=== PATIENT | female | born 1985 | race Caucasian/White ===

== ENCOUNTER 2020-06-17 16:36 | Emergency (ER) | payer BC, SELFPAY ==
[2020-06-17 16:45] VITALS: BP 120/79; PULSE 74; RESP 17; TEMP 36.6; O2SAT 100; BMI 37.1
--- NOTE | 2020-06-17 16:49 | HMH.EDUTC ---
[facility] [place] Clinical Impression: Viral syndrome, Exposure to COVID-19 virus Pharyngitis Qualifiers: Pharyngitis/tonsillitis etiology: unspecified etiology Qualified Code(s): J02.9 - Acute pharyngitis, unspecified Disposition: Home, Self-Care Condition on Discharge: Good Instructions: Preventing the Spread of Coronavirus Discharge Instructions Additional Instructions: Drink plenty of fluids. Take tylenol for pain or fever. Return if you begin to have difficulty breathing. Follow up with your regular doctor. GO TO THE ER FOR ANY WORSENING SYMPTOMS Prescriptions: Azithromycin [Z-Boris 250mg Tab*] 250 mg PO UD DOSE PK #6 tab Transmission Status: Received by [facility] Referrals: Edilson Winters MD [Primary Care Provider] - Forms: Work/School Release Time of Disposition: 17:02 Medical Decision Making - Medical Records Medical records reviewed: No: I reviewed the patient's medical records. - Ga Inquiry Pt receiving controlled substance: No Vital Signs: 06/17/20 16:45 06/17/20 17:10 Temperature 97.9 F 97.9 F Temperature Source Oral Oral Pulse Rate 74 Pulse Rate [Radial] 74 Respiratory Rate 17 17 Blood Pressure 120/79 Blood Pressure [Right Arm] 120/79 Blood Pressure Mean [Right Arm] 92 Blood Pressure Source Automatic Cuff Blood Pressure Source [Right Arm] Automatic Cuff Blood Pressure Position Sitting Blood Pressure Position [Right Arm] Sitting 02 Sat by Pulse Oximetry 100 Oxygen Delivery Method Room Air Room Air - Lab Data Lab results reviewed: Yes: I reviewed the patient's lab results. Orders (Tests/Meds): ORDERS Category Date Time Status Covid-19 Nasal PCR Sendout Contreras Routine Lab 06/17/20 16:56 Received [facility] [place] HPI - General Stated complaint: sore throat cough headache Time Seen by Provider: 06/17/20 16:49 - History of Present Illness Provider Complaint: She c/o 2 days of sore throat and sinus congestion. She has ran a low grade fever off and on since yesterday. She denies significant cough or shortness of breath. - Related Data Home Medications Medication Instructions Recorded Confirmed cholestyramine (with sugar) 4 gram 4 g PO DAILY PRN each 07/30/19 07/30/19 powder for susp in a packet estradiol 0.1 mg/24 hr semiweekly 1 patch TRANSDERMA ONCE each 07/30/19 07/30/19 transdermal patch sulfacetamide sodium 9.8 %-sulfur TOPICAL 07/30/19 07/30/19 4.8 % topical cleanser venlafaxine 37.5 mg mg PO 07/30/19 07/30/19 capsule,extended release 24 hr Previous Rx's Medication Instructions Recorded triamcinolone acetonide 0.1 % 1 applic TOPICAL BID #15 g 03/19/19 topical cream Azithromycin [Z-Boris 250mg Tab*] 250 mg PO UD DOSE PK #6 tab 06/17/20 Allergies Allergy/AdvReac Type Severity Reaction Status Date / Time oxycodone [OXYCODONE] Allergy Unknown I-HIVES Verified 07/30/19 16:12 [facility] History - Hepatitis A Screen Attestation statement:: This patient has been screened for Hepatitis A risk factors. I have reviewed the patient's past medical history: Yes Medical History: Reports:: Hypertension Other Surgeries: Yes: No Previous Surgery, Hysterectomy-Total Amputation: No Fractures: No - Social History Smoking Status: Never smoker Alcohol Intake: never Alcohol Intake Frequency:: 0-2 drinks per day Substance Use Type: denies use Occupational Status: employed Housing: house Household Members: family Family Hx:: Non-contributory ROS Obtained: Yes All systems reviewed & no additional complaints - Constitutional Constitutional: Reports system reviewed and no additional complaints, except as docu - Eyes Eyes: Reports system reviewed and no additional complaints, except as docu - ENT Ears, Nose, Mouth, and Throat: Reports system reviewed and no additional complaints, except as docu - Cardiovascular Cardiovascular: Reports system reviewed and no additional complaints, except as docu - Respir
[2020-06-17 17:10] VITALS: BP 120/79; PULSE 74; RESP 17; TEMP 36.6; O2SAT 100
[2020-06-18 21:35] LABS: UTC Strep Screen (Rapid) Negative (Negative)
[2020-06-19 12:09] LABS: Covid-19 Nasal PCR Sendout Lex Not Detected
== END 2020-06-17 17:11 | disposition home or self-care (01) ==
PROVIDERS: Emergency Provider Nurse Practitioner Family; PCP Family Medicine
DX: Z20.828 Contact with and (suspected) exposure to other viral communicable diseases (principal); B34.9 Viral infection, unspecified; Z88.5 Allergy status to narcotic agent
CPT/HCPCS: 87880; 99202; U0004

== ENCOUNTER → 2021-03-10 17:24 | Outpatient (CLI) | payer BC, SELFPAY | PROVIDERS: PCP Nurse Practitioner; Visit Provider Nurse Practitioner | DX: Z20.822 Contact with and (suspected) exposure to COVID-19 (principal) | CPT/HCPCS: U0003 ==

== ENCOUNTER → 2021-04-29 15:24 | Outpatient (CLI) | payer BC, SELFPAY | PROVIDERS: Visit Provider Nurse Practitioner | DX: Z20.822 Contact with and (suspected) exposure to COVID-19 (principal) | CPT/HCPCS: C9803; U0003; U0005 ==

== ENCOUNTER 2021-08-08 08:51 | Emergency (ER) | payer BC, SELFPAY ==
[2021-08-08] VITALS (7 sets, daily range): BP systolic 117–139; BP diastolic 62–78; PULSE 82–106; RESP 16; TEMP 36.8–37.1; O2SAT 90–100; BMI 37.1
--- NOTE | 2021-08-08 09:05 | HMH.EDGENADL ---
ED Disposition Clinical Impression: COVID Disposition: Home, Self-Care Condition on Discharge: Good Additional Instructions: Please continue to monitor your condition at home. If any concerning symptoms we discussed arise, please return to the emergency department. Otherwise, please follow-up with your primary care physician. Referrals: Tom Fitzgerald MD [Primary Care Provider] - - Critical Care Critical Care Time: No Attestation: On , the high probability of a clinically significant, sudden or life threatening deterioration of the following system(s) required my full and direct attention, intervention and personal management. The time I documented below is in addition to time spent performing reported procedures but includes the following listed in this critical care notation. Medical Decision Making - Medical Records Medical records reviewed: Yes: I reviewed the patient's medical records. - Ga Inquiry Pt receiving controlled substance: No Vital Signs: 08/08/21 08:53 08/08/21 09:31 08/08/21 10:01 Temperature 98.2 F Temperature Source Oral Pulse Rate 85 88 Pulse Rate [Right Radial] 93 H Respiratory Rate 16 16 Blood Pressure 134/65 125/72 Blood Pressure [Right Arm] 139/78 Blood Pressure Mean 91 Blood Pressure Mean [Right Arm] 98 Blood Pressure Source [Right Arm] Automatic Cuff Blood Pressure Position [Right Arm] Sitting 02 Sat by Pulse Oximetry 100 99 90 L Oxygen Delivery Method Room Air Room Air 08/08/21 10:31 08/08/21 11:00 Temperature Temperature Source Pulse Rate 89 82 Pulse Rate [Right Radial] Respiratory Rate 16 Blood Pressure 117/62 119/71 Blood Pressure [Right Arm] Blood Pressure Mean 86 Blood Pressure Mean [Right Arm] Blood Pressure Source [Right Arm] Blood Pressure Position [Right Arm] 02 Sat by Pulse Oximetry 98 98 Oxygen Delivery Method - Lab Data Lab results reviewed: Yes: I reviewed the patient's lab results. Lab Results 08/08/21 09:55: WBC 7.6, RBC 4.80, Hgb 14.3, Hct 52.8 H, MCV 110.1 H, MCH 29.9, MCHC 27.2 L, RDW 16.4, Plt Count 266, MPV 23.4 H, Neut % (Auto) 65.5, Lymph % (Auto) 26.1, [place] % (Auto) 3.6, Eos % (Auto) 4.7, Baso % (Auto) 17.8 H, Neut # (Auto) 5.0, Lymph # (Auto) 2.0, [place] # (Auto) 0.3, Eos # (Auto) 0.4, Baso # (Auto) 1.4 H 08/08/21 09:55: D-Dimer 0.85 H 08/08/21 09:55: Sodium 142, Potassium 4.3, Chloride 106, Carbon Dioxide 29, Anion Gap 11.3, BUN 13, Creatinine 0.70, Estimated Creat Clear 179, Estimated GFR 94, Est GFR ( Amer) 113, Glucose 91, Calcium 9.3, Total Bilirubin 0.2, AST 34, ALT 39, Alkaline Phosphatase 86, Troponin I < 0.01, Total Protein 7.3, Albumin 4.4, Globulin 2.9, Albumin/Globulin Ratio 1.5 Result diagrams: 08/08/21 09:55 08/08/21 09:55 Orders (Tests/Meds): ED MEDICATIONS Discontinued Medications Generic Name Dose Route Start Last Admin Trade Name Freq PRN Reason Stop Dose Admin Albuterol Sulfate 2.5 mg 08/08/21 09:24 Albuterol 0.083% 2.5 Mg/3 Ml Neb IH 08/08/21 09:25 ONCE ONE ORDERS Category Date Time Status Troponin I Q3H Lab 08/08/21 12:30 Ordered Troponin I Q3H Lab 08/08/21 15:30 Ordered EKG Request [ECG Request by /Mikael] Stat Y 08/08/21 09:24 Ordered Medical Decision Narrative: Patient is a 36-year-old female presenting with a chief complaint of dyspnea in the setting of a COVID-19 infection. Differential diagnosis includes, but is not limited to, COVID-19 pneumonia, superimposed bacterial infection, DVT, myocarditis/pericarditis, pleural effusion, other. On initial exam, patient is hemodynamically stable and nontoxic-appearing. She is mildly tachycardic on my exam. Her lungs are clear. She does have several risk factors for pulmonary embolus including decreased mobility since her right-sided hip surgery in June, family history of blood clots and current hormone use. Given this, patient was evaluate CBC, CMP, troponin, D-dimer, EKG and dawit
--- NOTE | 2021-08-08 09:23 | XR_ITS ---
PROCEDURE INFORMATION: Exam: XR Chest Exam date and time: 08/08/2021 9:23 AM Age: 36 years old Clinical indication: Shortness of breath; Additional info: Dyspnea, covid + TECHNIQUE: Imaging protocol: XR of the chest. Views: 1 view. COMPARISON: CR CXR CHEST(2 VIEWS-NOT PORTABLE) 08/10/2016 1:48 PM FINDINGS: Lungs: No focal airspace disease. Pleural spaces: Unremarkable. No pleural effusion. No pneumothorax. Heart/Mediastinum: Cardiomediastinal silhouette is within normal limits. Bones/joints: Unremarkable. IMPRESSION: No acute cardiopulmonary abnormality.
--- NOTE | 2021-08-08 09:30 | ECG_ITS ---
APPROVED REPORT Exam: Resting ECG HR:84 bpm ECG Measurements Heart Rate 84 AXES NH 175 P 38 QRSd 86 QRS 23 QT 375 T 19 QTc 417 Conclusion SINUS RHYTHM NONSPECIFIC T-WAVE ABNORMALITY BORDERLINE ECG UNCONFIRMED REPORT Electronically signed by : Jermaine Bledsoe MD 08/09/2021 17:28:37
[2021-08-08 10:36] LABS: Basophils # 1.4 K/mm3 (0-0.2); Basophils % 17.8 % (0.1-2.0); Eosinophils # 0.4 K/mm3 (0.0-0.4); Eosinophils % 4.7 % (0.1-12.0); Hematocrit 52.8 % (37.0-47.0); Hemoglobin 14.3 g/dL (12.2-16.2); Lymphocytes % 26.1 % (10-50); Mean Corpuscular HGB Conc 27.2 g/dL (31.8-35.4); Mean Corpuscular Hemoglobin 29.9 pg (27.0-31.2); Mean Corpuscular Volume 110.1 fl (81-99); Mean Platelet Volume 23.4 fl (7.4-10.4); Monocytes # 0.3 K/mm3 (0.1-1.0); Monocytes % 3.6 % (1.7-9.3); Neutrophils % 65.5 % (37.0-80.0); Platelet Count 266 K/mm3 (142-424); Red Cell Distribution Width 16.4 % (11.5-17.5); White Blood Count 7.6 K/mm3 (4.8-10.8)
[2021-08-08 10:45] LABS: Alanine Aminotransferase 39 U/L (12-78); Albumin Level 4.4 g/dl (3.5-5.0); Albumin/Globulin Ratio 1.5 (1.1-1.8); Alkaline Phosphatase 86 U/L (38-126); Anion Gap 11.3 mEq/L (5-15); Aspartate Amino Transferase 34 U/L (14-36); Bilirubin,Total 0.2 mg/dl (0.2-1.3); Blood Urea Nitrogen 13 mg/dl (7-17); Calcium 9.3 mg/dl (8.4-10.2); Carbon Dioxide 29 mmol/L (22.0-30.0); Chloride 106 mmol/L (98-107); Creatinine Clearance Estimated 179 mL/min (50-200); Estimated Glomerular Filt Rate 94 ml/min (>60); GFR (African American) 113 ML/MIN (>60); Globulin 2.9 g/dL (1.3-3.2); Glucose 91 mg/dl (74-100); Potassium 4.3 mmoL/L (3.5-5.1); Sodium 142 mmol/L (136-145); Total Protein,Serum 7.3 g/dl (6.3-8.2)
[2021-08-08 10:50] LABS: D-Dimer 0.85 ug/mL (0.0-0.5)
[2021-08-08 11:12] LABS: Troponin I < 0.01 ng/ml (0.00-0.034)
== END 2021-08-08 11:35 | disposition home or self-care (01) ==
PROVIDERS: Emergency Provider Emergency Medicine; PCP Family Medicine
DX: U07.1 COVID-19 (principal); I10 Essential (primary) hypertension
CPT/HCPCS: 71045; 80053; 84484; 85025; 85378; 93005; 99282

== ENCOUNTER → 2022-04-14 08:31 | Outpatient (CLI) | payer BC, SELFPAY ==
[2022-04-14 19:09] LABS: Basophils # 0.1 K/mm3 (0-0.2); Basophils % 1.7 % (0.1-2.0); Eosinophils # 0.2 K/mm3 (0.0-0.4); Eosinophils % 2.8 % (0.1-12.0); Hematocrit 44.4 % (37.0-47.0); Hemoglobin 13.9 g/dL (12.2-16.2); Lymphocytes # 1.7 K/mm3 (0.7-4.5); Lymphocytes % 28.5 % (10-50); Mean Corpuscular HGB Conc 31.3 g/dL (31.8-35.4); Mean Corpuscular Hemoglobin 29.5 pg (27.0-31.2); Mean Corpuscular Volume 94.2 fl (81-99); Mean Platelet Volume 9.6 fl (7.4-10.4); Monocytes # 0.2 K/mm3 (0.1-1.0); Neutrophils # 3.7 K/mm3 (1.8-7.8); Neutrophils % 62.9 % (37.0-80.0); Platelet Count 400 K/mm3 (142-424); Red Blood Count 4.71 M/mm3 (4.20-5.40); White Blood Count 5.8 K/mm3 (4.8-10.8)
[2022-04-14 19:25] LABS: Alanine Aminotransferase 28 U/L (12-78); Albumin/Globulin Ratio 1.5 (1.1-1.8); Alkaline Phosphatase 117 U/L (38-126); Anion Gap 14.9 mEq/L (5-15); Aspartate Amino Transferase 34 U/L (14-36); Blood Urea Nitrogen 11 mg/dl (7-17); Calcium 8.7 mg/dl (8.4-10.2); Carbon Dioxide 29 mmol/L (22.0-30.0); Chloride 102 mmol/L (98-107); Chol/HDL Ratio 2.4 (1-3.5); Cholesterol 198 mg/dl (140-200); Estimated Glomerular Filt Rate 80 ml/min (>60); GFR (African American) 97 ML/MIN (>60); Globulin 2.7 g/dL (1.3-3.2); Glucose 62 mg/dl (74-100); HDL Cholesterol 82 mg/dl (40-60); Potassium 4.9 mmoL/L (3.5-5.1); Sodium 141 mmol/L (136-145); Total Protein,Serum 6.7 g/dl (6.3-8.2); Triglycerides 103 mg/dl (30-150); VLDL Cholesterol 21 mg/dL (0-40)
[2022-04-14 19:27] LABS: Bilirubin,Total < 0.1 mg/dl (0.2-1.3)
[2022-04-14 19:36] LABS: Direct LDL Cholesterol 85.57 mg/dL (100-129)
[2022-04-14 19:37] LABS: 25-OH Vitamin D, Total 16.4 ng/mL (30-100)
[2022-04-14 19:56] LABS: Thyroid Stimulating Hormone 1.33 uIU/mL (0.465-4.68)
[2022-04-14 20:15] LABS: Vitamin B12 346 pg/mL (239-931)
[2022-04-20 19:32] LABS: Estrogen 229 pg/mL (.)
== END ==
PROVIDERS: PCP Nurse Practitioner; Visit Provider Nurse Practitioner
DX: R53.83 Other fatigue (principal); Z78.0 Asymptomatic menopausal state; E66.9 Obesity, unspecified; Z68.36 Body mass index [BMI] 36.0-36.9, adult
CPT/HCPCS: 80053; 80061; 82306; 82607; 82672; 84443; 85025

== ENCOUNTER → 2022-09-23 22:26 | Outpatient (CLI) | payer BC, SELFPAY ==
[2022-09-23 18:15] LABS: Basophils # 0.1 K/mm3 (0-0.2); Basophils % 1.4 % (0.1-2.0); Eosinophils # 0.2 K/mm3 (0.0-0.4); Eosinophils % 2.8 % (0.1-12.0); Hematocrit 45.2 % (37.0-47.0); Hemoglobin 15.4 g/dL (12.2-16.2); Lymphocytes # 2.1 K/mm3 (0.7-4.5); Lymphocytes % 27.4 % (10-50); Mean Corpuscular HGB Conc 34.2 g/dL (31.8-35.4); Mean Corpuscular Hemoglobin 30.4 pg (27.0-31.2); Mean Corpuscular Volume 88.9 fl (81-99); Mean Platelet Volume 8.7 fl (7.4-10.4); Monocytes # 0.3 K/mm3 (0.1-1.0); Monocytes % 3.5 % (1.7-9.3); Neutrophils # 4.9 K/mm3 (1.8-7.8); Neutrophils % 64.8 % (37.0-80.0); Platelet Count 419 K/mm3 (142-424); Red Blood Count 5.08 M/mm3 (4.20-5.40); Red Cell Distribution Width 13.2 % (11.5-17.5); White Blood Count 7.6 K/mm3 (4.8-10.8)
== END ==
PROVIDERS: PCP Nurse Practitioner; Visit Provider Nurse Practitioner
DX: R10.32 Left lower quadrant pain (principal); R10.9 Unspecified abdominal pain; R19.7 Diarrhea, unspecified
CPT/HCPCS: 85025; 87086

== ENCOUNTER → 2022-10-03 09:30 | Outpatient (CLI) | payer BC, SELFPAY ==
[2022-10-03 18:35] LABS: Basophils # 0.1 K/mm3 (0-0.2); Basophils % 1.2 % (0.1-2.0); Chloride 104 mmol/L (98-107); Eosinophils # 0.2 K/mm3 (0.0-0.4); Eosinophils % 2.5 % (0.1-12.0); Hematocrit 45.9 % (37.0-47.0); Hemoglobin 14.8 g/dL (12.2-16.2); Lymphocytes # 2.2 K/mm3 (0.7-4.5); Lymphocytes % 27.2 % (10-50); Mean Corpuscular HGB Conc 32.4 g/dL (31.8-35.4); Mean Corpuscular Hemoglobin 29.5 pg (27.0-31.2); Mean Platelet Volume 9.2 fl (7.4-10.4); Monocytes # 0.3 K/mm3 (0.1-1.0); Neutrophils # 5.1 K/mm3 (1.8-7.8); Platelet Count 356 K/mm3 (142-424); Red Blood Count 5.04 M/mm3 (4.20-5.40); Sodium 140 mmol/L (136-145); White Blood Count 7.9 K/mm3 (4.8-10.8)
[2022-10-03 18:38] LABS: Blood Urea Nitrogen 14 mg/dl (7-17); Carbon Dioxide 26 mmol/L (22.0-30.0); Estimated Glomerular Filt Rate 62 ml/min (>60); GFR (African American) 75 ML/MIN (>60); Glucose 90 mg/dl (74-100)
== END ==
PROVIDERS: PCP Nurse Practitioner; Visit Provider Nurse Practitioner
DX: N17.9 Acute kidney failure, unspecified (principal)
CPT/HCPCS: 80048; 85025

== ENCOUNTER → 2022-10-10 23:18 | Outpatient (CLI) | payer BC, SELFPAY ==
[2022-10-10 17:35] LABS: Microscopic, Urine URINE MICROSCOPIC (MICROSCOPIC)
[2022-10-10 18:29] LABS: Anion Gap 10.2 mEq/L (5-15); Blood Urea Nitrogen 13 mg/dl (7-17); Calcium 8.6 mg/dl (8.4-10.2); Carbon Dioxide 27 mmol/L (22.0-30.0); Chloride 105 mmol/L (98-107); Estimated Glomerular Filt Rate 70 ml/min (>60); GFR (African American) 84 ML/MIN (>60); Glucose 81 mg/dl (74-100); Potassium 4.2 mmoL/L (3.5-5.1); Sodium 138 mmol/L (136-145)
[2022-10-10 18:38] LABS: Appearance,Urine CLEAR (Clear); Bilirubin,Urine Negative (Negative); Blood, Urine Negative (Negative); Color,Urine YELLOW (Yellow); Glucose,Urine (UA) Negative (Negative); Ketones,Urine Negative (Negative); Leukocyte Esterase,Urine Negative (Negative); Nitrate,Urine Negative (Negative); Protein,Urine Negative (Negative); Urobilinogen,Urine 0.2 EU/dl (0.2)
[2022-10-10 18:43] LABS: Free T4 (Free Thyroxine) 0.77 ng/dl (0.78-2.19)
[2022-10-10 18:58] LABS: Thyroid Stimulating Hormone 2.45 uIU/mL (0.465-4.68)
[2022-10-10 19:15] LABS: Total Protein,Urine Random < 5.0 mg/dL (0.0-12.0)
[2022-10-10 20:17] LABS: Microalbumin/Creatinine Ratio 5.3
[2022-10-10 20:36] LABS: Creatinine,Urine Random 124 mg/dL (Not Estab.)
[2022-10-10 21:42] LABS: Squamous Epithelial Cell,Urine Occasional #/hpf (0-5)
== END ==
PROVIDERS: PCP Nurse Practitioner; Visit Provider Nurse Practitioner
DX: N17.9 Acute kidney failure, unspecified (principal)
CPT/HCPCS: 80048; 81001; 82043; 82570; 84155; 84439; 84443

== ENCOUNTER → 2022-12-12 14:42 | Outpatient (CLI) | payer BC, SELFPAY | PROVIDERS: PCP Nurse Practitioner; Visit Provider Nurse Practitioner | DX: N10 Acute pyelonephritis (principal) ==

== ENCOUNTER → 2022-12-14 12:20 | Outpatient (CLI) | payer BC, SELFPAY ==
[2022-12-12 19:35] LABS: Chloride 101 mmol/L (98-107); Potassium 4.4 mmoL/L (3.5-5.1); Sodium 139 mmol/L (136-145)
[2022-12-12 19:38] LABS: Alanine Aminotransferase 23 U/L (12-78); Albumin/Globulin Ratio 1.3 (1.1-1.8); Alkaline Phosphatase 93 U/L (38-126); Anion Gap 14.4 mEq/L (5-15); Aspartate Amino Transferase 29 U/L (14-36); Bilirubin,Total 0.3 mg/dl (0.2-1.3); Blood Urea Nitrogen 9 mg/dl (7-17); Carbon Dioxide 28 mmol/L (22.0-30.0); Estimated Glomerular Filt Rate 80 ml/min (>60); GFR (African American) 97 ML/MIN (>60); Globulin 3.1 g/dL (1.3-3.2); Total Protein,Serum 7.1 g/dl (6.3-8.2)
[2022-12-12 19:39] LABS: Calcium 9.1 mg/dl (8.4-10.2); Glucose 82 mg/dl (74-100)
[2022-12-14 18:42] LABS: Microscopic, Urine URINE MICROSCOPIC (MICROSCOPIC)
[2022-12-14 20:21] LABS: Appearance,Urine CLEAR (Clear); Bilirubin,Urine Negative (Negative); Blood, Urine Negative (Negative); Color,Urine YELLOW (Yellow); Glucose,Urine (UA) Negative (Negative); Ketones,Urine Negative (Negative); Leukocyte Esterase,Urine Negative (Negative); Nitrate,Urine Negative (Negative); Protein,Urine TRACE (Negative); Specific Gravity, Urine 1.025 (1.005-1.030); Urobilinogen,Urine 0.2 EU/dl (0.2)
[2022-12-14 21:02] LABS: Amorphous Sediment,Urine 2+ /lpf; Bacteria,Urine 3+ /lpf; RBC,Urine Occasional #/hpf (0-3)
== END ==
PROVIDERS: PCP Nurse Practitioner; Visit Provider Nurse Practitioner
DX: N10 Acute pyelonephritis (principal); N20.0 Calculus of kidney
CPT/HCPCS: 80053; 81001; 87086

== ENCOUNTER → 2023-02-27 13:22 | Outpatient (CLI) | payer BC, SELFPAY ==
[2023-02-27 14:19] LABS: Blood Urea Nitrogen 8 mg/dl (7-17); Calcium 8.8 mg/dl (8.4-10.2); Carbon Dioxide 29 mmol/L (22.0-30.0); Chloride 106 mmol/L (98-107); Estimated Glomerular Filt Rate 79 ml/min (>60); GFR (African American) 96 ML/MIN (>60); Glucose 95 mg/dl (74-100); Sodium 139 mmol/L (136-145)
== END ==
PROVIDERS: PCP Nurse Practitioner; Visit Provider Nurse Practitioner
DX: U07.1 COVID-19 (principal)
CPT/HCPCS: 80048

== ENCOUNTER → 2023-04-04 23:35 | Outpatient (CLI) | payer BC, SELFPAY ==
[2023-04-04 18:39] LABS: Basophils % 0.7 % (0.1-2.0); Eosinophils # 0.2 K/mm3 (0.0-0.4); Eosinophils % 2.2 % (0.1-12.0); Hematocrit 42.1 % (37.0-47.0); Hemoglobin 13.3 g/dL (12.2-16.2); Lymphocytes # 2.2 K/mm3 (0.7-4.5); Lymphocytes % 31.7 % (10-50); Mean Corpuscular HGB Conc 31.4 g/dL (31.8-35.4); Mean Corpuscular Hemoglobin 29.4 pg (27.0-31.2); Mean Corpuscular Volume 93.6 fl (81-99); Mean Platelet Volume 8.6 fl (7.4-10.4); Monocytes # 0.3 K/mm3 (0.1-1.0); Monocytes % 3.8 % (1.7-9.3); Neutrophils # 4.2 K/mm3 (1.8-7.8); Neutrophils % 61.7 % (37.0-80.0); Platelet Count 313 K/mm3 (142-424); Red Blood Count 4.51 M/mm3 (4.20-5.40); Red Cell Distribution Width 13.1 % (11.5-17.5); White Blood Count 6.8 K/mm3 (4.8-10.8)
[2023-04-04 19:06] LABS: Alanine Aminotransferase 22 U/L (12-78); Albumin Level 3.8 g/dl (3.5-5.0); Albumin/Globulin Ratio 1.3 (1.1-1.8); Alkaline Phosphatase 95 U/L (38-126); Anion Gap 12.9 mEq/L (5-15); Aspartate Amino Transferase 29 U/L (14-36); Blood Urea Nitrogen 9 mg/dl (7-17); Calcium 8.7 mg/dl (8.4-10.2); Carbon Dioxide 27 mmol/L (22.0-30.0); Chloride 106 mmol/L (98-107); Estimated Glomerular Filt Rate 93 ml/min (>60); GFR (African American) 112 ML/MIN (>60); Glucose 92 mg/dl (74-100); Potassium 3.9 mmoL/L (3.5-5.1); Sodium 142 mmol/L (136-145); Total Protein,Serum 6.8 g/dl (6.3-8.2)
[2023-04-04 19:12] LABS: Bilirubin,Total 0.1 mg/dl (0.2-1.3)
== END ==
PROVIDERS: PCP Nurse Practitioner; Visit Provider Nurse Practitioner
DX: N30.01 Acute cystitis with hematuria (principal)
CPT/HCPCS: 80053; 85025; 87086

== ENCOUNTER → 2023-06-12 12:00 | Outpatient (CLI) | payer BC, SELFPAY ==
[2023-06-12 18:09] LABS: Coronavirus 19, PCR Not Detected (NotDetected); Influenza A, PCR Not Detected (NotDetected); Influenza B, PCR Not Detected (NotDetected)
== END ==
PROVIDERS: PCP Nurse Practitioner; Visit Provider Nurse Practitioner
DX: J06.9 Acute upper respiratory infection, unspecified (principal)
CPT/HCPCS: 87636

== ENCOUNTER 2023-08-07 20:34 | Outpatient (CLI) | payer BC, SELFPAY ==
[2023-08-07 18:58] LABS: Basophils # 0.1 K/mm3 (0-0.2); Basophils % 1.2 % (0.1-2.0); Eosinophils # 0.1 K/mm3 (0.0-0.4); Eosinophils % 1.5 % (0.1-12.0); Hematocrit 40.2 % (37.0-47.0); Hemoglobin 13.8 g/dL (12.2-16.2); Lymphocytes # 2.1 K/mm3 (0.7-4.5); Mean Corpuscular HGB Conc 34.2 g/dL (31.8-35.4); Mean Corpuscular Hemoglobin 30.9 pg (27.0-31.2); Mean Corpuscular Volume 90.4 fl (81-99); Mean Platelet Volume 8.4 fl (7.4-10.4); Monocytes # 0.3 K/mm3 (0.1-1.0); Monocytes % 4.7 % (1.7-9.3); Neutrophils # 3.1 K/mm3 (1.8-7.8); Neutrophils % 55.6 % (37.0-80.0); Platelet Count 300 K/mm3 (142-424); Red Blood Count 4.45 M/mm3 (4.20-5.40); Red Cell Distribution Width 12.6 % (11.5-17.5); White Blood Count 5.6 K/mm3 (4.8-10.8)
[2023-08-07 20:12] LABS: Anion Gap 10.4 mEq/L (5-15); Blood Urea Nitrogen 8 mg/dl (7-17); Carbon Dioxide 30 mmol/L (22.0-30.0); Chloride 103 mmol/L (98-107); Estimated Glomerular Filt Rate 79 ml/min (>60); GFR (African American) 96 ML/MIN (>60); Glucose 92 mg/dl (74-100); Potassium 4.4 mmoL/L (3.5-5.1); Sodium 139 mmol/L (136-145)
== END 2023-08-07 23:59 ==
LOC: LAB.DROPOF 20:35
PROVIDERS: PCP Nurse Practitioner; Visit Provider Nurse Practitioner
DX: Z01.818 Encounter for other preprocedural examination (principal)
CPT/HCPCS: 80048; 85025

== ENCOUNTER 2023-09-07 22:11 | Outpatient (CLI) | payer BC, SELFPAY ==
[2023-09-07 19:37] LABS: Anion Gap 10.1 mEq/L (5-15); Blood Urea Nitrogen 8 mg/dl (7-17); Carbon Dioxide 31 mmol/L (22.0-30.0); Chloride 100 mmol/L (98-107); Estimated Glomerular Filt Rate 69 ml/min (>60); GFR (African American) 84 ML/MIN (>60); Glucose 98 mg/dl (74-100); Potassium 4.1 mmoL/L (3.5-5.1); Sodium 137 mmol/L (136-145)
== END 2023-09-07 23:59 ==
LOC: LAB.DROPOF 22:12
PROVIDERS: PCP Nurse Practitioner; Visit Provider Nurse Practitioner
DX: Z87.448 Personal history of other diseases of urinary system (principal); Z79.899 Other long term (current) drug therapy
CPT/HCPCS: 80048

== ENCOUNTER 2023-12-11 17:26 | Emergency (ER) | payer BC, SELFPAY ==
[2023-12-11 17:27] VITALS: BP 127/60; PULSE 73; RESP 16; TEMP 36.4; O2SAT 100; BMI 27.2
--- NOTE | 2023-12-11 17:38 | ED_ITS ---
Discharge Plan Disposition Patient Disposition: Home, Self-Care Condition: Good Prescriptions Prescriptions: No Action cefdinir 300 mg capsule 300 mg PO BID Qty: 20 0RF dextromethorphan-guaifenesin 60-1,200 mg tablet extended release 12 hr 1 tab PO Q12H Qty: 60 0RF moxifloxacin 0.5 % drops 1 drp ophthalmic (eye) TID 7 Days Qty: 3 0RF fluticasone propionate 50 mcg/actuation spray,suspension 1 spray intranasal DAILY Qty: 16 2RF Rx Instructions: administer into each nostril quetiapine 25 mg tablet 25 - 50 mg PO HS PRN (Reason: sleep) Qty: 30 2RF cholestyramine (with sugar) 4 gram powder in packet 4 g PO DAILY Qty: 60 5RF estradiol 2 mg tablet See Rx Instructions .ROUTE .COMPLEX Qty: 90 1RF Dose Instruction: TAKE 1 TABLET BY MOUTH EVERY DAY Rx Instructions: TAKE 1 TABLET BY MOUTH EVERY DAY (DME) pen needle, diabetic [BD Bailey 2nd Gen Pen Needle] 32 gauge x 5/32 needle See Rx Instructions .Route Qty: 50 11RF Rx Instructions: As directed Wegovy 2.4 mg/0.75 mL pen injector 2.4 mg SQ WEEKLY Qty: 3 2RF ropinirole 0.5 mg tablet See Rx Instructions .ROUTE .COMPLEX Qty: 90 1RF Dose Instruction: TAKE 1 TABLET ORALLY AT BEDTIME NIGHTLY ADMINISTER 1-3 HOURS BEFORE BEDTIME Rx Instructions: TAKE 1 TABLET ORALLY AT BEDTIME NIGHTLY ADMINISTER 1-3 HOURS BEFORE BEDTIME Referrals Follow up/Referrals: Bernadette Montero APRN [Primary Care Provider] - See instructions Activity Restrictions/Add. Instructions Additional Instructions/Restrictions: Follow-up with your PCP as needed. You may take Tylenol with alternating Motrin every 4 hours as needed. Return to ER for any worsening signs or symptoms. Clinical Impressions Clinical Impression: Low back pain Qualifiers: Chronicity: acute Back pain laterality: right Sciatica presence: without sciatica Qualified Code(s): M54.50 - Low back pain, unspecified Discharge ED Provider: Sony Grant [facility] HPI <LETICIA Rodas - Last Filed: 12/11/23 19:34> General Chief complaint: PAIN Stated complaint: Low back pain,nausea,cloudy urine,ROBERTS Time Seen by Provider: 12/11/23 17:28 History of Present Illness HPI narrative: Patient presents for evaluation of right flank pain and dysuria. Patient has a history Of kidney injury and is concerned that she may be developing another 1 because she has right flank pain malaise nausea and cloudy urine. Denies chest pain shortness of breath fever chills hemoptysis hematochezia melena. Patient also has a history of ureterolithiasis Related Data Previous Rx's Medication Instructions Recorded quetiapine 25 mg tablet 25 - 50 mg (1 - 2 x 25 mg) PO HS 04/14/22 PRN sleep #30 tabs cholestyramine (with sugar) 4 gram 4 g PO DAILY #60 ea 10/24/22 powder for susp in a packet estradiol 2 mg tablet See Rx Instructions .Route 11/21/22 .COMPLEX #90 tabs pen needle, diabetic 32 gauge x #50 ea 02/06/23 (BD Bailey 2nd Gen Pen Needle) semaglutide (weight loss) 2.4 2.4 mg (0.75 mL) SQ WEEKLY #3 mL 09/22/23 mg/0.75 mL subcutaneous pen injector (Chevyvcharity) cefdinir 300 mg capsule 300 mg PO BID #20 caps 11/13/23 dextromethorphan-guaifenesin ER 60 1 tab PO Q12H #60 tabs 11/13/23 mg-1,200 mg tab,extend release,12hr fluticasone propionate 50 1 spray intranasal DAILY #16 grams 11/13/23 mcg/actuation nasal spray,suspension moxifloxacin 0.5 % eye drops 1 drp ophthalmic (eye) TID 7 days 11/13/23 #3 mL ropinirole 0.5 mg tablet See Rx Instructions .Route 12/11/23 .COMPLEX #90 tabs Allergies Allergy/AdvReac Type Severity Reaction Status Date / Time oxycodone [OXYCODONE] Allergy Unknown I-HIVES Verified 11/13/23 14:39 [facility] <LETICIA Rodas - Last Filed: 12/11/23 19:34> [facility] Disclaimer: The information contained in this section may have been updated after the patient was seen, as this information can be updated by other users. Medical History Acute cystitis with hematuria RLS (restless legs syndrome) Hyperlipidemia Vitamin B12 deficiency Postmenopausal BMI 36.0-36.9,adult Obesity Insomnia Surgical History History of hip surgery (~2020) History of shoulder surgery (~2017) History of appendectomy (Unknown) History of hysterectomy (~2016) vaginal History of cholecystectomy (Unknown) Family History Other Diabetes Hypertension Stroke Social History Smoking Status: Never smoker alcohol intake: never substance use type: denies use current occupational status: other Travel in the last 8 weeks: None household members: family housing: house <LETICIA Rodas - Last Filed: 12/11/23 19:34> ROS Obtained: Yes Systems reviewed as appropriate & no additional complaints except as documented Physical Exam <LETICIA Rodas - Last Filed: 12/11/23 19:34> General General appearance: alert and in no apparent distress Respiratory Respiratory exam: Present normal lung sounds bilaterally Cardiovascular Cardiovascular exam: Present regular rate and normal rhythm Abdominal Exam Abdominal exam: Present soft and normal bowel sounds; Absent tenderness, guarding or rebound Extremities Exam Extremities exam: Present normal inspection and full ROM Back Exam Back exam: Present normal inspection, full ROM and CVA tenderness (R) (To percussion); Absent tenderness (Midline spine) or CVA tenderness (L) Neurological Exam Neurological exam: Present alert and oriented X3 Medical Decision Making <LETICIA Rodas - Last Filed: 12/11/23 19:34> Medical Records Medical records reviewed: Yes I reviewed the patient's medical records. [place] Inquiry Pt receiving controlled substance: No Vital Signs: 12/11/23 17:27 12/11/23 17:40 12/11/23 18:00 Temperature 97.5 F L Temperature Source Oral Pulse Rate 82 54 L Pulse Rate [Left Radial] 73 Respiratory Rate 16 Blood Pressure 127/60 118/58 L Blood Pressure [Right Arm] 127/60 Blood Pressure Mean [Right Arm] 82 02 Sat by Pulse Oximetry 100 100 97 Oxygen Delivery Method Room Air Room Air Lab Data Lab results reviewed: Yes I reviewed the patient's lab results. Lab Results 12/11/23 17:34: Urine Color Yellow, Urine Appearance Clear, Urine pH 6.0, Ur Specific Melvin <= 1.005, Urine Protein Negative, Urine Glucose (UA) Negative, Urine Ketones Negative, Urine Blood Negative, Urine Nitrate Negative, Urine Bilirubin Negative, Urine Urobilinogen 0.2, Ur Leukocyte Esterase Negative, Urine RBC None, Urine WBC None, Ur Squamous Epith Cells Occasional, Urine Bacteria None 12/11/23 18:00: WBC 6.9, RBC 4.03 L, Hgb 12.5, Hct 37.8, MCV 93.9, MCH 31.1, MCHC 33.1, RDW 13.0, Plt Count 283, MPV 7.7, Neut % (Auto) 52.4, Lymph % (Auto) 41.1, Sharkey % (Auto) 3.3, Eos % (Auto) 2.3, Baso % (Auto) 0.8, Neut # (Auto) 3.6, Lymph # (Auto) 2.9, Sharkey # (Auto) 0.2, Eos # (Auto) 0.2, Baso # (Auto) 0.1, Sodium 138, Potassium 3.6, Chloride 103, Carbon Dioxide 29, Anion Gap 9.6, BUN 13, Creatinine 0.80, Estimated Creat Clear 113, Estimated GFR 79, Est GFR ( Amer) 96, Glucose 85, Calcium 9.3, Total Bilirubin 0.3, AST 27, ALT 20, Alkaline Phosphatase 75, Total Protein 7.2, Albumin 4.1, Globulin 3.1, Albumin/Globulin Ratio 1.3 12/11/23 18:00 12/11/23 18:00 Orders (Tests/Meds): ED MEDICATIONS Generic Name Dose Route Start Last Admin Trade Name Freq PRN Reason Stop Dose Admin Sodium Chloride 10 ml 12/11/23 18:38 12/11/23 18:40 Sodium Chloride 0.9% 10ml Syr (Rad Only) IV 01/10/24 18:37 10 ml NEEDED PRN Administration Maintain IV Site Discontinued Medications Generic Name Dose Route Start Last Admin Trade Name Freq PRN Reason Stop Dose Admin Acetaminophen 1,000 mg 12/11/23 17:43 12/11/23 18:05 Acetaminophen 1,000mg/100ml Vial IV 12/11/23 17:44 1,000 mg ONCE ONE Administration Lactated Ringer's 1,000 mls @ 999 mls/hr 12/11/23 17:43 12/11/23 18:03 Lactated Ringer's 1000 Ml Bag IV 12/11/23 18:43 999 mls/hr .Q1H1M ONE Administration Iopamidol 75 ml 12/11/23 18:38 12/11/23 18:40 Iopamidol-370 (76%);100ml Bottle IV 12/11/23 18:39 75 ml ONCE ONE Administration Ondansetron HCl 4 mg 12/11/23 18:26 12/11/23 18:41 Ondansetron 4mg/2ml Vial IV 12/11/23 18:27 4 mg ONCE ONE Administration ORDERS Category Date Time Status CT abdomen pelvis w con Stat Cat Scan 12/11/23 17:44 Completed CBC w/Auto Diff [Complete Blood Count Auto Diff] Stat Lab 12/11/23 18:00 Completed CMP [Comprehensive Metabolic Panel] Stat Lab 12/11/23 18:00 Completed UA [Urinalysis and Microscopic] Stat Lab 12/11/23 17:34 Completed Medical Decision Narrative: In summary patient is a 38-year-old female who presents to the emergency department for evaluation of left flank pain and dysuria. Patient is hemodynamically stable upon arrival, afebrile. Physical exam is remarkable for CVA tenderness to percussion on the right negative on the left and no abdominal tenderness on palpation. Patient has had a total abdominal hysterectomy appendectomy and cholecystectomy.. Differential diagnosis includes urinary tract infectious disease versus pyelonephritis versus ureterolithiasis versus gastroenteritis etc. Initial workup will be conducted with hematologic labs, urinalysis, CT scan abdomen pelvis with contrast after labs are back. Initial interventions include acetaminophen for now until renal function is known and continuous cardiac monitoring and pulse oximetry. Initial workup reviewed by me shows that her hematologic labs are nonactionable including a normal white count with no shift, urinalysis is completely bland, and my informal interpretation of CT scan abdomen pelvis did not show any acute abnormalities prior to radiologist read.. Upon repeat evaluation patient reports no change in her symptoms but no worsening either. Given this I had interactive discussion with the patient and she feels that the patient directed decision making that she is fine to go home and follow-up with her PCP as needed. <Sony Grant MD - Last Filed: 12/11/23 19:38> Vital Signs: 12/11/23 17:27 12/11/23 17:40 12/11/23 18:00 Temperature 97.5 F L Temperature Source Oral Pulse Rate 82 54 L Pulse Rate [Left Radial] 73 Respiratory Rate 16 Blood Pressure 127/60 118/58 L Blood Pressure [Right Arm] 127/60 Blood Pressure Mean [Right Arm] 82 02 Sat by Pulse Oximetry 100 100 97 Oxygen Delivery Method Room Air Room Air Lab Data Lab Results 12/11/23 17:34: Urine Color Yellow, Urine Appearance Clear, Urine pH 6.0, Ur Specific Melvin <= 1.005, Urine Protein Negative, Urine Glucose (UA) Negative, Urine Ketones Negative, Urine Blood Negative, Urine Nitrate Negative, Urine Bilirubin Negative, Urine Urobilinogen 0.2, Ur Leukocyte Esterase Negative, Urine RBC None, Urine WBC None, Ur Squamous Epith Cells Occasional, Urine Bacteria None 12/11/23 18:00: WBC 6.9, RBC 4.03 L, Hgb 12.5, Hct 37.8, MCV 93.9, MCH 31.1, MCHC 33.1, RDW 13.0, Plt Count 283, MPV 7.7, Neut % (Auto) 52.4, Lymph % (Auto) 41.1, Sharkey % (Auto) 3.3, Eos % (Auto) 2.3, Baso % (Auto) 0.8, Neut # (Auto) 3.6, Lymph # (Auto) 2.9, Sharkey # (Auto) 0.2, Eos # (Auto) 0.2, Baso # (Auto) 0.1, Sodium 138, Potassium 3.6, Chloride 103, Carbon Dioxide 29, Anion Gap 9.6, BUN 13, Creatinine 0.80, Estimated Creat Clear 113, Estimated GFR 79, Est GFR ( Amer) 96, Glucose 85, Calcium 9.3, Total Bilirubin 0.3, AST 27, ALT 20, Alkaline Phosphatase 75, Total Protein 7.2, Albumin 4.1, Globulin 3.1, Albumin/Globulin Ratio 1.3 Orders (Tests/Meds): ED MEDICATIONS Generic Name Dose Route Start Last Admin Trade Name Freq PRN Reason Stop Dose Admin Sodium Chloride 10 ml 12/11/23 18:38 12/11/23 18:40 Sodium Chloride 0.9% 10ml Syr (Rad Only) IV 01/10/24 18:37 10 ml NEEDED PRN Administration Maintain IV Site Discontinued Medications Generic Name Dose Route Start Last Admin Trade Name Noe PRN Reason Stop Dose Admin Acetaminophen 1,000 mg 12/11/23 17:43 12/11/23 18:05 Acetaminophen 1,000mg/100ml Vial IV 12/11/23 17:44 1,000 mg ONCE ONE Administration Lactated Ringer's 1,000 mls @ 999 mls/hr 12/11/23 17:43 12/11/23 18:03 Lactated Ringer's 1000 Ml Bag IV 12/11/23 18:43 999 mls/hr .Q1H1M ONE Administration Iopamidol 75 ml 12/11/23 18:38 12/11/23 18:40 Iopamidol-370 (76%);100ml Bottle IV 12/11/23 18:39 75 ml ONCE ONE Administration Ondansetron HCl 4 mg 12/11/23 18:26 12/11/23 18:41 Ondansetron 4mg/2ml Vial IV 12/11/23 18:27 4 mg ONCE ONE Administration ORDERS Category Date Time Status CT abdomen pelvis w con Stat Cat Scan 12/11/23 17:44 Completed CBC w/Auto Diff [Complete Blood Count Auto Diff] Stat Lab 12/11/23 18:00 Completed CMP [Comprehensive Metabolic Panel] Stat Lab 12/11/23 18:00 Completed UA [Urinalysis and Microscopic] Stat Lab 12/11/23 17:34 Completed Medical Decision Narrative: In summary patient is a 38-year-old female who presents to the emergency department for evaluation of left flank pain and dysuria. Patient is hemodynamically stable upon arrival, afebrile. Physical exam is remarkable for CVA tenderness to percussion on the right negative on the left and no abdominal tenderness on palpation. Patient has had a total abdominal hysterectomy appendectomy and cholecystectomy.. Differential diagnosis includes urinary tract infectious disease versus pyelonephritis versus ureterolithiasis versus gastroenteritis etc. Initial workup will be conducted with hematologic labs, urinalysis, CT scan abdomen pelvis with contrast after labs are back. Initial interventions include acetaminophen for now until renal function is known and continuous cardiac monitoring and pulse oximetry. Initial workup reviewed by me shows that her hematologic labs are nonactionable including a normal white count with no shift, urinalysis is completely bland, and my informal interpretation of CT scan abdomen pelvis did not show any acute abnormalities prior to radiologist read.. Upon repeat evaluation patient reports no change in her symptoms but no worsening either. Given this I had interactive discussion with the patient and she feels that the patient directed decision making that she is fine to go home and follow-up with her PCP as needed. Because patient at baseline without signs or symptoms of clinical decompensation, deemed appropriate for discharge. Results were relayed to patient who voiced understanding and were agreeable to outpatient management and follow up. I discussed my clinical impression with patient and answered all questions. At this time, the evidence for any other entities in the differential is insufficient to warrant any further testing or ED observation. This was explained as well. Advisory was given that persistent or worsening symptoms require further evaluation. I confirmed the understanding of this discussion. I was consulted by the RABIA, and we discussed the complexity of the problems being addressed. I approved the treatment and management plan for this patient?s care in the Emergency Department, thus performing a substantive portion of the medical decision making. Sony Grant MD Critical Care <LETICIA Rodas - Last Filed: 12/11/23 19:34> Critical Care Time Critical Care Time: No
[2023-12-11 17:40] VITALS: BP 127/60; PULSE 82; O2SAT 100
--- NOTE | 2023-12-11 17:44 | CT_ITS ---
PROCEDURE INFORMATION: Exam: CT Abdomen And Pelvis With Contrast Exam date and time: 12/11/2023 6:35 PM Age: 38 years old Clinical indication: Abdominal pain; Flank; Right; Additional info: Right flank pain. History of stage 4 kidney failure one year ago TECHNIQUE: Imaging protocol: Computed tomography of the abdomen and pelvis with contrast. Radiation optimization: All CT scans at this facility use at least one of these dose optimization techniques: automated exposure control; mA and/or kV adjustment per patient size (includes targeted exams where dose is matched to clinical indication); or iterative reconstruction. Contrast material: ISOVUE; Contrast volume: 75 ml; Contrast route: IV; COMPARISON: CR XR CHEST PORTABLE 08/08/2021 9:46 AM FINDINGS: Liver: Normal. Gallbladder and bile ducts: Gallbladder is surgically absent. Pancreas: Normal. Spleen: Normal. Adrenal glands: Normal. No mass. Kidneys and ureters: Normal. Stomach and bowel: Colonic diverticulosis. Appendix: No evidence of appendicitis. Intraperitoneal space: Unremarkable. No free air. No significant fluid collection. Vasculature: Phleboliths within the pelvis. Lymph nodes: Unremarkable. No enlarged lymph nodes. Urinary bladder: Unremarkable as visualized. Reproductive: Uterus surgically absent. Bones/joints: No acute abnormality. Soft tissues: Normal. IMPRESSION: No acute abdominal or pelvic abnormality.
[2023-12-11 17:51] LABS: Microscopic, Urine URINE MICROSCOPIC (MICROSCOPIC)
[2023-12-11 17:54] LABS: Appearance,Urine CLEAR (Clear); Bilirubin,Urine Negative (Negative); Blood, Urine Negative (Negative); Color,Urine YELLOW (Yellow); Glucose,Urine (UA) Negative (Negative); Ketones,Urine Negative (Negative); Leukocyte Esterase,Urine Negative (Negative); Nitrate,Urine Negative (Negative); Protein,Urine Negative (Negative); Specific Gravity, Urine <= 1.005 (1.005-1.030); Urobilinogen,Urine 0.2 EU/dl (0.2)
[2023-12-11 18:00] VITALS: BP 118/58; PULSE 54; O2SAT 97
[2023-12-11] MEDS: LACTATED RINGERS 1000ML 1,000 ML 999 ML IV (18:03)
[2023-12-11] MEDS: ACETAMINOPHEN 1,000MG/100ML VIAL 1000 MG IV (18:05)
[2023-12-11 18:14] LABS: Squamous Epithelial Cell,Urine Occasional #/hpf (0-5)
[2023-12-11 18:16] LABS: Basophils # 0.1 K/mm3 (0-0.2); Basophils % 0.8 % (0.1-2.0); Eosinophils # 0.2 K/mm3 (0.0-0.4); Eosinophils % 2.3 % (0.1-12.0); Hematocrit 37.8 % (37.0-47.0); Hemoglobin 12.5 g/dL (12.2-16.2); Lymphocytes # 2.9 K/mm3 (0.7-4.5); Lymphocytes % 41.1 % (10-50); Mean Corpuscular HGB Conc 33.1 g/dL (31.8-35.4); Mean Corpuscular Hemoglobin 31.1 pg (27.0-31.2); Mean Corpuscular Volume 93.9 fl (81-99); Mean Platelet Volume 7.7 fl (7.4-10.4); Monocytes # 0.2 K/mm3 (0.1-1.0); Monocytes % 3.3 % (1.7-9.3); Neutrophils # 3.6 K/mm3 (1.8-7.8); Neutrophils % 52.4 % (37.0-80.0); Platelet Count 283 K/mm3 (142-424); Red Blood Count 4.03 M/mm3 (4.20-5.40); White Blood Count 6.9 K/mm3 (4.8-10.8)
[2023-12-11 18:23] LABS: Chloride 103 mmol/L (98-107); Potassium 3.6 mmoL/L (3.5-5.1); Sodium 138 mmol/L (136-145)
[2023-12-11 18:26] LABS: Alanine Aminotransferase 20 U/L (12-78); Albumin Level 4.1 g/dl (3.5-5.0); Albumin/Globulin Ratio 1.3 (1.1-1.8); Alkaline Phosphatase 75 U/L (38-126); Anion Gap 9.6 mEq/L (5-15); Aspartate Amino Transferase 27 U/L (14-36); Bilirubin,Total 0.3 mg/dl (0.2-1.3); Blood Urea Nitrogen 13 mg/dl (7-17); Calcium 9.3 mg/dl (8.4-10.2); Carbon Dioxide 29 mmol/L (22.0-30.0); Creatinine Clearance Estimated 113 mL/min (50-200); Estimated Glomerular Filt Rate 79 ml/min (>60); GFR (African American) 96 ML/MIN (>60); Globulin 3.1 g/dL (1.3-3.2); Glucose 85 mg/dl (74-100); Total Protein,Serum 7.2 g/dl (6.3-8.2)
[2023-12-11] MEDS: SODIUM CHLORIDE 0.9% 10ML SYR (RAD ONLY) 10 ML IV (18:40)
[2023-12-11] MEDS: IOPAMIDOL-370 (76%);100ML BOTTLE 75 ML IV (18:40)
[2023-12-11] MEDS: ONDANSETRON 4MG/2ML VIAL 4 MG IV (18:41)
[2023-12-11 19:38] VITALS: BP 121/66; PULSE 57; RESP 18; TEMP 37.1; O2SAT 96
== END 2023-12-11 19:42 | disposition home or self-care (01) ==
PROVIDERS: Physician Assistant; Emergency Provider Emergency Medicine; PCP Nurse Practitioner
DX: M54.59 Other low back pain (principal); R30.0 Dysuria; R11.0 Nausea; R53.81 Other malaise
CPT/HCPCS: 74177; 80053; 81001; 85025; 96361; 96374; 96375; 99284; J0131; J2405; J7120; Q9967

== ENCOUNTER 2024-01-04 09:10 | Outpatient (CLI) | payer BC, SELFPAY ==
[2024-01-04 20:35] LABS: Vitamin B12 270 pg/mL (239-931)
[2024-01-04 21:08] LABS: 25-OH Vitamin D, Total 65.5 ng/mL (30-100)
== END 2024-01-04 23:59 | disposition home or self-care (01) ==
LOC: LAB.DROPOF 01-05 09:11
PROVIDERS: PCP Nurse Practitioner; Visit Provider Nurse Practitioner
DX: E53.8 Deficiency of other specified B group vitamins (principal); E55.9 Vitamin D deficiency, unspecified
CPT/HCPCS: 82306; 82607

== ENCOUNTER 2024-02-05 16:20 | Outpatient (CLI) | payer BC, SELFPAY ==
[2024-02-05 18:35] LABS: Basophils # 0.1 K/mm3 (0-0.2); Basophils % 1.1 % (0.1-2.0); Eosinophils # 0.2 K/mm3 (0.0-0.4); Eosinophils % 2.2 % (0.1-12.0); Hematocrit 41.7 % (37.0-47.0); Hemoglobin 13.6 g/dL (12.2-16.2); Lymphocytes % 30.8 % (10-50); Mean Corpuscular HGB Conc 32.5 g/dL (31.8-35.4); Mean Corpuscular Hemoglobin 30.7 pg (27.0-31.2); Mean Corpuscular Volume 94.2 fl (81-99); Mean Platelet Volume 8.5 fl (7.4-10.4); Monocytes # 0.2 K/mm3 (0.1-1.0); Monocytes % 3.2 % (1.7-9.3); Neutrophils # 4.2 K/mm3 (1.8-7.8); Neutrophils % 62.7 % (37.0-80.0); Platelet Count 348 K/mm3 (142-424); Red Blood Count 4.42 M/mm3 (4.20-5.40); Red Cell Distribution Width 13.3 % (11.5-17.5); White Blood Count 6.6 K/mm3 (4.8-10.8)
[2024-02-05 19:10] LABS: Anion Gap 10.5 mEq/L (5-15); Blood Urea Nitrogen 14 mg/dl (7-17); Calcium 9.7 mg/dl (8.4-10.2); Carbon Dioxide 31 mmol/L (22.0-30.0); Chloride 105 mmol/L (98-107); Estimated Glomerular Filt Rate 69 ml/min (>60); GFR (African American) 84 ML/MIN (>60); Glucose 94 mg/dl (74-100); Potassium 5.5 mmoL/L (3.5-5.1); Sodium 141 mmol/L (136-145)
== END 2024-02-05 23:59 | disposition home or self-care (01) ==
LOC: LAB.DROPOF 02-06 16:21
PROVIDERS: PCP Nurse Practitioner; Visit Provider Nurse Practitioner
DX: Z01.818 Encounter for other preprocedural examination (principal)
CPT/HCPCS: 80048; 85025

== ENCOUNTER 2024-02-06 10:30 | Outpatient (CLI) | payer BC, SELFPAY ==
[2024-02-06 19:23] LABS: Anion Gap 10.7 mEq/L (5-15); Blood Urea Nitrogen 13 mg/dl (7-17); Calcium 9.4 mg/dl (8.4-10.2); Carbon Dioxide 28 mmol/L (22.0-30.0); Chloride 106 mmol/L (98-107); Estimated Glomerular Filt Rate 93 ml/min (>60); GFR (African American) 112 ML/MIN (>60); Glucose 96 mg/dl (74-100); Potassium 4.7 mmoL/L (3.5-5.1); Sodium 140 mmol/L (136-145)
== END 2024-02-06 23:59 | disposition home or self-care (01) ==
LOC: LAB.DROPOF 02-07 10:30
PROVIDERS: PCP Nurse Practitioner; Visit Provider Nurse Practitioner
DX: E87.5 Hyperkalemia (principal)
CPT/HCPCS: 80048

== ENCOUNTER 2024-04-08 13:09 | Outpatient (CLI) | payer BC, SELFPAY ==
--- NOTE | 2024-04-08 13:12 | XR_ITS ---
FINAL REPORT TECHNIQUE: Chest PA & Lateral CLINICAL HISTORY: chest pain, SOB COMPARISON: 08/08/2021 FINDINGS: 2 views of the chest were performed. The heart size is normal. The mediastinum is within normal limits. There is no acute cardiopulmonary process. There are no pleural effusions. There is no pneumothorax. The bony thorax appears intact. IMPRESSION: No acute cardiopulmonary process. Reviewed, Interpreted and Dictated by Omar Armenta MD Transcribed by Camelia Dawson Authenticated and [facility]
[2024-04-08 14:25] LABS: Alanine Aminotransferase 20 U/L (12-78); Albumin Level 4.4 g/dl (3.5-5.0); Albumin/Globulin Ratio 1.4 (1.1-1.8); Alkaline Phosphatase 84 U/L (38-126); Aspartate Amino Transferase 25 U/L (14-36); Bilirubin,Total 0.4 mg/dl (0.2-1.3); Blood Urea Nitrogen 10 mg/dl (7-17); Calcium 9.4 mg/dl (8.4-10.2); Carbon Dioxide 31 mmol/L (22.0-30.0); Chloride 106 mmol/L (98-107); Chol/HDL Ratio 2.4 (1-3.5); Cholesterol 234 mg/dl (140-200); Estimated Glomerular Filt Rate 79 ml/min (>60); GFR (African American) 96 ML/MIN (>60); Globulin 3.1 g/dL (1.3-3.2); Glucose 95 mg/dl (74-100); HDL Cholesterol 97 mg/dl (40-60); Sodium 137 mmol/L (136-145); Total Protein,Serum 7.5 g/dl (6.3-8.2); Triglycerides 133 mg/dl (30-150); VLDL Cholesterol 27 mg/dL (0-40)
[2024-04-08 14:30] LABS: Hemoglobin A1C 5.3 % (4.0-6.0)
[2024-04-08 14:31] LABS: Basophils # 0.1 K/mm3 (0-0.2); Basophils % 1.3 % (0.1-2.0); D-Dimer < 0.25 ug/mL (0.0-0.5); Eosinophils # 0.1 K/mm3 (0.0-0.4); Eosinophils % 1.6 % (0.1-12.0); Hematocrit 46.5 % (37.0-47.0); Hemoglobin 14.8 g/dL (12.2-16.2); Lymphocytes # 1.8 K/mm3 (0.7-4.5); Lymphocytes % 26.7 % (10-50); Mean Corpuscular HGB Conc 31.9 g/dL (31.8-35.4); Mean Corpuscular Hemoglobin 31.6 pg (27.0-31.2); Mean Platelet Volume 8.1 fl (7.4-10.4); Monocytes # 0.2 K/mm3 (0.1-1.0); Monocytes % 3.4 % (1.7-9.3); Neutrophils # 4.5 K/mm3 (1.8-7.8); Neutrophils % 66.9 % (37.0-80.0); Platelet Count 297 K/mm3 (142-424); Red Cell Distribution Width 13.2 % (11.5-17.5); White Blood Count 6.8 K/mm3 (4.8-10.8)
[2024-04-08 14:36] LABS: Direct LDL Cholesterol 95.64 mg/dL (100-129)
[2024-04-08 14:46] LABS: Troponin I < 0.01 ng/ml (0.00-0.034)
== END 2024-04-08 23:59 | disposition home or self-care (01) ==
LOC: LAB 13:09
PROVIDERS: PCP Nurse Practitioner; Visit Provider Nurse Practitioner
DX: R07.9 Chest pain, unspecified (principal); R06.02 Shortness of breath
CPT/HCPCS: 71046; 80050; 80053; 80061; 83036; 84443; 84484; 85025; 85378

== ENCOUNTER 2024-04-16 10:55 | Outpatient (CLI) | payer BC, SELFPAY ==
--- NOTE | 2024-04-16 11:03 | CA_ITS ---
APPROVED REPORT EXAM: Comprehensive 2D, Doppler, and color-flow Echocardiogram Assistant Health Educator: Mercy Nassar RT(R) Ht: 5 ft 6 in Wt: 175lbs BSA: 1.89 BP: 120/72 mmHg Indications: CP, ex smoker, palpitations, hyperlipidemia, SOB, family history of HD 2D Dimensions LVEF (Copeland's) 54.90 % F: 54 - 74 LV Volume 92.90 mL F: 46 - 106 LV Volume Index 49.2 mL/m2 F: 29 - 61 LA Volume 26.60 mL LA Volume Index 14.07 mL/m2 (M/F) 16-34 EF AP4 57.60 % EF AP2 53.6 % EF BP 54.9 % GL Strain -20.3 % M-Mode Dimensions RVDd 2.14 cm (0.9-2.6) LA Diam 2.83 cm (1.9-4.0) LVDd 4.42 cm (3.5-5.7) LVDs 2.96 cm (3.5-5.7) IVSd 0.75 cm (0.6-1.1) PWd 0.82 cm (0.6-1.1) EF (Teich) 61.70% FS 33.00% EDV (Teich) 88.60 mL ESV (Teich) 33.90 mL LV Diastology E Decel Time 200 (160-240 msec) E/A Ratio 2.9 Mitral Valve MV E Max Florentin. 115.0 (40-130 cm/s) MV A Velocity 40.0 (40-130 cm/s) E/A Ratio 2.89 MV PHT 59.0 ms Left Ventricle The left ventricle is normal size. The left ventricular systolic function is normal. The left ventricular ejection fraction is within the normal range. There is normal left ventricular wall thickness. There is normal LV segmental wall motion. The left ventricular diastolic function is normal. LVEF is 55%. Right Ventricle The right ventricle is normal size. The right ventricular systolic function is normal. Atria The left atrium size is normal. The right atrium size is normal. There is no Doppler evidence of interatrial shunt. Aortic Valve The aortic valve opens well. There is no aortic valvular stenosis. No aortic regurgitation is present. Mitral Valve The mitral valve is normal in structure. No evidence of mitral valve stenosis. Mild mitral regurgitation. Tricuspid Valve The tricuspid valve leaflets are thin and pliable. Trace tricuspid regurgitation. There is insufficient TR jet to estimate RVSP. Pulmonic Valve The pulmonary valve is normal in structure. Trace pulmonic regurgitation. Great Vessels The aortic root is normal in size. The ascending aorta is normal in size. IVC is normal in size and collapses >50% with inspiration. Pericardium There is no pericardial effusion. Other Information Study Quality: Adequate Conclusion Normal biventricular systolic function. No significant valvular stenosis or regurgitation. Electronically signed by : Eugenia Chowdhury MD 04/21/2024 23:54:57
== END 2024-04-16 23:59 | disposition home or self-care (01) ==
LOC: RT 10:57
PROVIDERS: PCP Nurse Practitioner; Visit Provider Nurse Practitioner
DX: R07.9 Chest pain, unspecified (principal); R06.02 Shortness of breath
CPT/HCPCS: 93306

== ENCOUNTER 2024-08-24 09:10 | Emergency (ER) | payer BC, SELFPAY ==
[2024-08-24 09:11] VITALS: BP 146/81; PULSE 99; RESP 18; TEMP 36.6; O2SAT 100; BMI 28.4
[2024-08-24 09:16] VITALS: BP 146/81; PULSE 109; O2SAT 100
[2024-08-24 09:30] VITALS: BP 136/75; PULSE 101; O2SAT 100
--- NOTE | 2024-08-24 09:31 | CT_ITS ---
PROCEDURE INFORMATION: Exam: CT Head Without Contrast Exam date and time: 08/24/2024 10:57 AM Age: 39 years old Clinical indication: Pain; Headache; Additional info: Sudden severe ROBERTS and right sided neck/roberts yesterday TECHNIQUE: Imaging protocol: Computed tomography of the head without contrast. Radiation optimization: All CT scans at this facility use at least one of these dose optimization techniques: automated exposure control; mA and/or kV adjustment per patient size (includes targeted exams where dose is matched to clinical indication); or iterative reconstruction. COMPARISON: No relevant prior studies available. FINDINGS: Brain: No evidence of acute parenchymal hemorrhage, extra-axial collection or local regional mass effect. Cerebral ventricles: The ventricles, sulci and cisterns are normal in size and configuration. No hydrocephalus or midline structure shift Pituitary gland and sella: Sellar/parasellar structures, orbits and craniocervical junction are unremarkable Paranasal sinuses: Visualized sinuses are unremarkable. No fluid levels. Mastoid air cells: Visualized mastoid air cells are well aerated. Bones: No calvarial fracture Soft tissues: Unremarkable. IMPRESSION: No acute intracranial abnormality. No calvarial fracture.
--- NOTE | 2024-08-24 09:31 | CT_ITS ---
PROCEDURE INFORMATION: Exam: CTA Head With Contrast, Arteriography Exam date and time: 08/24/2024 10:59 AM Age: 39 years old Clinical indication: Pain; Headache; Additional info: Sudden severe ROBERTS and right sided neck/roberts yesterday TECHNIQUE: Imaging protocol: Computed tomographic angiography of the head with contrast. Exam focused on the arteries. 3D rendering (Not supervised by radiologist): MIP and/or 3D reconstructed images were created by the technologist. Radiation optimization: All CT scans at this facility use at least one of these dose optimization techniques: automated exposure control; mA and/or kV adjustment per patient size (includes targeted exams where dose is matched to clinical indication); or iterative reconstruction. Contrast material: ISOVUE 370; Contrast volume: 75 ml; Contrast route: INTRAVENOUS (IV); COMPARISON: CT HEAD/BRAIN WO CON 08/24/2024 10:57 AM FINDINGS: ANTERIOR CIRCULATION: Right internal carotid artery: Intracranial segment is patent with no significant stenosis. No aneurysm. Right middle cerebral artery: No occlusion or significant stenosis. No aneurysm. Right anterior cerebral artery: No occlusion or significant stenosis. No aneurysm. Left internal carotid artery: Intracranial segment is patent with no significant stenosis. No aneurysm. Left middle cerebral artery: No occlusion or significant stenosis. No aneurysm. Left anterior cerebral artery: No occlusion or significant stenosis. No aneurysm. POSTERIOR CIRCULATION: Right vertebral artery: No occlusion or significant stenosis. No aneurysm. Left vertebral artery: No occlusion or significant stenosis. No aneurysm. Basilar artery: No occlusion or significant stenosis. No aneurysm. Right posterior cerebral artery: No occlusion or significant stenosis. No aneurysm. Left posterior cerebral artery: No occlusion or significant stenosis. No aneurysm. Brain: No definite mass, mass effect, or midline shift. Cerebral ventricles: No ventriculomegaly. Bones/joints: Unremarkable. No acute fracture. Soft tissues: Unremarkable. IMPRESSION: No large vessel stenosis or occlusion.
--- NOTE | 2024-08-24 09:31 | CT_ITS ---
PROCEDURE INFORMATION: Exam: CTA Neck With Contrast Exam date and time: 08/24/2024 10:59 AM Age: 39 years old Clinical indication: Other: Sudden severe ROBERTS and right sided neck/roberts yesterday TECHNIQUE: Imaging protocol: Computed tomographic angiography of the neck with contrast. Exam focused on the cervical segments of the vasculature. 3D rendering (Not supervised by radiologist): MIP and/or 3D reconstructed images were created by the technologist. Radiation optimization: All CT scans at this facility use at least one of these dose optimization techniques: automated exposure control; mA and/or kV adjustment per patient size (includes targeted exams where dose is matched to clinical indication); or iterative reconstruction. Contrast material: ISOVUE 370; Contrast volume: 80 ml; Contrast route: INTRAVENOUS (IV); COMPARISON: CT ANGIO HEAD 08/24/2024 10:59 AM FINDINGS: Right common carotid artery: No stenosis. No dissection or occlusion. Right internal carotid artery: No stenosis of the extracranial segment. No dissection or occlusion. Right external carotid artery: No occlusion or stenosis of the origin. Left common carotid artery: No stenosis. No dissection or occlusion. Left internal carotid artery: No stenosis of the extracranial segment. No dissection or occlusion. Left external carotid artery: No occlusion or stenosis of the origin. Right vertebral artery: No stenosis. No dissection or occlusion. Left vertebral artery: No stenosis. No dissection or occlusion. Soft tissues: Normal. No significant soft tissue swelling. Bones/joints: No acute fracture. IMPRESSION: No stenosis or occlusion. REFERENCES: NASCET CRITERIA. The degree of stenosis in the cervical segment of the internal carotid artery is based on NASCET criteria. Normal is no stenosis. Mild is less than 50% stenosis. Moderate is 50-69% stenosis. Severe is 70% to 99% stenosis. Total occlusion is no detectable patent lumen.
[2024-08-24] MEDS: ACETAMINOPHEN 1,000MG/100ML VIAL 1000 MG IV (09:45)
[2024-08-24] MEDS: 0.9 % SODIUM CHLORIDE 1000ML 1,000 ML 999 ML IV (09:45)
[2024-08-24] MEDS: diphenhydrAMINE 50MG/ML VIAL 25 MG IV (09:47)
[2024-08-24] MEDS: PROCHLORPERAZINE 10MG/2ML VIAL 10 MG IV (09:47)
--- NOTE | 2024-08-24 09:47 | PC.NURSE ---
I rounded on the pt to administer meds. no new complaints at this time. no needs voiced. call atkinson in reach.
--- NOTE | 2024-08-24 09:48 | HMH.EDGENADL ---
Discharge Plan Disposition Patient Disposition: Home, Self-Care Prescriptions Prescriptions: No Action venlafaxine 75 mg capsule,extended release 24hr 75 mg PO DAILY Qty: 30 2RF Rx Instructions: take with 37.5mg cap for 112.5mg daily dose venlafaxine 37.5 mg capsule,extended release 24hr 37.5 mg PO DAILY Qty: 30 2RF Rx Instructions: take with 75mg cap for 112.5mg daily dose lamotrigine [Lamictal] 25 mg tablet 75 mg PO DAILY Qty: 270 0RF Rx Instructions: If you develop a rash, stop the medication and call the clinic cholestyramine (with sugar) 4 gram powder in packet 4 g PO DAILY Qty: 60 5RF ropinirole 0.5 mg tablet See Rx Instructions .ROUTE .COMPLEX Qty: 90 1RF Dose Instruction: TAKE 1 TABLET ORALLY AT BEDTIME NIGHTLY ADMINISTER 1-3 HOURS BEFORE BEDTIME Rx Instructions: TAKE 1 TABLET ORALLY AT BEDTIME NIGHTLY ADMINISTER 1-3 HOURS BEFORE BEDTIME estradiol 2 mg tablet See Rx Instructions .ROUTE .COMPLEX Qty: 90 1RF Dose Instruction: TAKE 1 TABLET BY MOUTH EVERY DAY Rx Instructions: TAKE 1 TABLET BY MOUTH EVERY DAY cyclobenzaprine 10 mg tablet 10 mg PO TID PRN (Reason: muscle spasm) Qty: 30 0RF Referrals Follow up/Referrals: Bernadette Montero APRN [Primary Care Provider] - See instructions Activity Restrictions/Add. Instructions Additional Instructions/Restrictions: No evidence of a vascular dissection or aneurysm or any neurovascular emergency. Please return with any high fevers neck stiffness neurologic complaints or other concerns. Clinical Impressions Clinical Impression: Headache Print Language Print Language: Zambian Discharge ED Provider: Tony Mobley General Adult HPI General Chief complaint: Headache Stated complaint: headache Time Seen by Provider: 08/24/24 09:21 Mode of Arrival: Ambulatory Source of Information: Patient Limitations: No Limitations Description of Symptoms (Recalled from ER Triage Doc. by RN): headache since yesterday. took tylenol and motrin last night @ 1800. denies other symptoms. History of Present Illness HPI narrative: Patient is a 39-year-old female presenting today with a severe headache. States that this was sudden in nature woke her up from sleep around 6 AM yesterday morning. Pain was as maximal intensity at its onset. She has had some waxing waning of symptoms since that time but definitely at its worst at the beginning. She denies any neurologic symptoms such as changes in vision coordination numbness weakness tingling etc. She continues to have pain particular the right side of her head. Denies any fevers or chills or neck stiffness. She does have a history of some mild headaches but no migraines and nothing that brought her to the emergency department in the past. States his headache is out of proportion to things that she has had the past she also took Tylenol and ibuprofen at home which not alleviate her symptoms. Related Data Previous Rx's ?Medication ?Instructions ?Recorded cholestyramine (with sugar) 4 gram 4 g PO DAILY #60 ea 10/24/22 powder for susp in a packet ropinirole 0.5 mg tablet See Rx Instructions .Route 06/13/24 .COMPLEX #90 tabs estradiol 2 mg tablet See Rx Instructions .Route 07/17/24 .COMPLEX #90 tabs cyclobenzaprine 10 mg tablet 10 mg PO TID PRN muscle spasm #30 07/24/24 tabs lamotrigine 25 mg tablet (Lamictal) 75 mg (3 x 25 mg) PO DAILY #270 08/07/24 tabs venlafaxine 37.5 mg 37.5 mg PO DAILY #30 caps 08/07/24 capsule,extended release 24 hr venlafaxine 75 mg capsule,extended 75 mg PO DAILY #30 caps 08/07/24 release 24 hr Allergies Allergy/AdvReac Type Severity Reaction Status Date / Time oxycodone (OXYCODONE) Allergy Unknown I-HIVES Verified 07/23/24 10:13 [facility] Disclaimer: The information contained in this section may have been updated after the patient was seen, as this information can be updated by other users. 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 MDD (major depressive disorder), recurrent episode, with atypical features Generalized anxiety disorder with panic attacks PCOS (polycystic ovarian syndrome) Allergic rhinitis Anxiety with depression Chronic GERD SOB (shortness of breath) Chest pain Vasomotor symptoms due to menopause Situational anxiety Vitamin D deficiency Acute cystitis with hematuria RLS (restless legs syndrome) Hyperlipidemia Vitamin B12 deficiency Postmenopausal BMI 36.0-36.9,adult Obesity Insomnia Surgical History History of repair of left hip joint (~2020) History of vaginal hysterectomy (~2017) Hx of shoulder surgery (~2017) H/O left knee surgery History of cholecystectomy History of hip surgery (~2020) History of shoulder surgery (~2018) History of appendectomy (Unknown) History of hysterectomy (~2016) vaginal History of cholecystectomy (Unknown) Family History Diabetes Hypertension Stroke Social History Smoking Status: Never smoker alcohol intake: never substance use type: denies use current occupational status: employed and other Travel in the last 8 weeks: None household members: family housing: house number of children: 2 Have you lived/traveled outside US in past 30 days?: No Contact w/someone who lives/traveled outside US past 30 days?: No Exposure to someone with infectious disease in past 14 days?: No Do you have a fever (greater than 100.4 F or 38 C)?: No Have you tested positive for COVID-19: No Exposed to someone with COVID-19 in past 14 days?: No Do you have a sore throat?: No Do you have a cough?: No Do you have any weakness?: No Do you have any diarrhea?: No Are you experiencing any unusual bleeding?: No Do you have any muscle aches/pain?: No Do you have any abdominal pain?: No Are you experiencing loss of taste or smell?: No Other Medical History Have you received the Flu Vaccine for this season: Yes Have you received the Pneumonia Vaccine: No ROS Obtained: Yes All systems reviewed & no additional complaints except as documented Physical Exam General General appearance: alert and in no apparent distress ENT ENT exam: Present normal exam, normal oropharynx and TM's normal bilaterally Respiratory Respiratory exam: Absent respiratory distress Cardiovascular Cardiovascular exam: Present regular rate; Absent normal rhythm Neurological Exam Neurological exam: Present alert, oriented X3, CN II-XII intact and normal gait; Absent motor sensory deficit Medical Decision Making Medical Records Screening: Per USPSTF and CDC recommendations, given the prevalence of disease in our region, it is our hospital?s policy to screen for HIV and viral Hepatitis for all patients aged 18 and over and those with ongoing risk factors. [place] Inquiry Pt receiving controlled substance: No Vital Signs: 08/24/24 09:11 08/24/24 09:16 08/24/24 09:30 Temperature 98 F Temperature Source Oral Pulse Rate 109 H 101 H Pulse Rate [Right] 99 H Respiratory Rate 18 Blood Pressure 146/81 H 136/75 Blood Pressure [Right Arm] 146/81 H Blood Pressure Mean [Right Arm] 102 02 Sat by Pulse Oximetry 100 100 100 Oxygen Delivery Method Room Air Room Air Room Air Lab Data Lab results reviewed: Yes I reviewed the patient's lab results. Lab Results 08/24/24 09:45: WBC 5.9, RBC 4.60, Hgb 14.0, Hct 41.9, MCV 91.1, MCH 30.4, MCHC 33.4, RDW 12.1, Plt Count 321, MPV 9.4, Neut % (Auto) 60.3, Lymph % (Auto) 28.7, [place] % (Auto) 6.0, Eos % (Auto) 3.4, Baso % (Auto) 1.4, Neut # (Auto) 3.6, Lymph # (Auto) 1.7, [place] # (Auto) 0.4, Eos # (Auto) 0.2, Baso # (Auto) 0.1, Sodium 140, Potassium 4.2, Chloride 103, Carbon Dioxide 34 H, Anion Gap 7.2, BUN 8, Creatinine 0.70, Estimated Creat Clear 133, Estimated GFR 92, Est GFR ( Amer) 112, Glucose 70 L, Calcium 9.2, Total Bilirubin 0.3, AST 30, ALT 24, Alkaline Phosphatase 79, Total Protein 7.2, Albumin 4.4, Globulin 2.8, Albumin/Globulin Ratio 1.6, Serum HCG, Qual Negative 08/24/24 09:45 08/24/24 09:45 Orders (Tests/Meds): ED MEDICATIONS Generic Name Dose Route Start Last Admin Trade Name Freq PRN Reason Stop Dose Admin Sodium Chloride 10 ml 08/24/24 11:01 08/24/24 11:02 Sodium Chloride 0.9% 10ml Syr (Rad Only) IV 09/23/24 11:00 10 ml NEEDED PRN Administration Maintain IV Site Discontinued Medications Generic Name Dose Route Start Last Admin Trade Name Freq PRN Reason Stop Dose Admin Acetaminophen 1,000 mg 08/24/24 09:31 08/24/24 09:45 Acetaminophen 1,000mg/100ml Vial IV 08/24/24 09:32 1,000 mg ONCE ONE Administration Diphenhydramine HCl 25 mg 08/24/24 09:31 08/24/24 09:47 Diphenhydramine 50mg/Ml Vial IV 08/24/24 09:32 25 mg ONCE ONE Administration Sodium Chloride 1,000 mls @ 999 mls/hr 08/24/24 09:45 08/24/24 09:45 Sod Chlor 0.9% 1000ml Bag IV 08/24/24 10:45 999 mls/hr .Q1H1M NESS Administration Iopamidol 75 ml 08/24/24 11:01 08/24/24 11:02 Iopamidol-370 (76%);100ml Bottle IV 08/24/24 11:02 75 ml ONCE ONE Administration Prochlorperazine Edisylate 10 mg 08/24/24 09:31 08/24/24 09:47 Prochlorperazine 10mg/2ml Vial IV 08/24/24 09:32 10 mg ONCE ONE Administration Sodium Chloride 50 ml 08/24/24 11:01 08/24/24 11:02 0.9 % Sodium Chloride 50 Ml Vial IV 08/24/24 11:02 50 ml ONCE ONE Administration ORDERS Category Date Time Status CT angio head Stat Cat Scan 08/24/24 09:[address] angio neck Stat Cat Scan 08/24/24 09:[address] head/brain wo con Stat Cat Scan 08/24/24 09:31 Completed CBC w/Auto Diff [Complete Blood Count Auto Diff] Stat Lab 08/24/24 09:45 Completed CMP [Comprehensive Metabolic Panel] Stat Lab 08/24/24 09:45 Completed HCG Qualitative, Serum Stat Lab 08/24/24 09:45 Completed HIV Combo Stat Lab 08/24/24 09:19 Ordered Hepatitis C Ab Qual. W/ RFX Stat Lab 08/24/24 09:19 Ordered Medical Decision Narrative: 39-year-old with sudden severe headache that started yesterday morning with a normal neurologic exam at this point. Main concerns would be some type of vascular pathology such as arterial dissection or aneurysm etc. While it is possible that she has other pathology would be found on CT scan such as space-occupying lesion or venous sinus thrombosis those are unlikely. She had no preceding viral symptoms or sinusitis. She otherwise looks very well clinically. Subjectively she has severe pain. Will give her a cocktail of medications including Tylenol Compazine Benadryl and IV fluids. And will reassess shortly. Given how good she looks of her CT and CT angiography of her head neck or unremarkable the utility of lumbar puncture following her workup today would be very limited if there is no obvious aneurysm. CT scans performed which I personally interpreted which shows no evidence of any intracranial pathology hemorrhage or aneurysm or dissection. Radiology read consistent with this as well. Reassessment 1130 serial neurologic exams normal patient feels significantly better discharged in improved and stable condition return precaution and follow-up instructions emphasized. Critical Care Critical Care Time Critical Care Time: No
[2024-08-24 09:54] LABS: Basophils # 0.1 K/mm3 (0-0.2); Basophils % 1.4 % (0.1-2.0); Eosinophils # 0.2 K/mm3 (0.0-0.4); Eosinophils % 3.4 % (0.1-12.0); Hematocrit 41.9 % (37.0-47.0); Lymphocytes # 1.7 K/mm3 (0.7-4.5); Lymphocytes % 28.7 % (10-50); Mean Corpuscular HGB Conc 33.4 g/dL (31.8-35.4); Mean Corpuscular Hemoglobin 30.4 pg (27.0-31.2); Mean Corpuscular Volume 91.1 fl (81-99); Mean Platelet Volume 9.4 fl (7.4-10.4); Monocytes # 0.4 K/mm3 (0.1-1.0); Neutrophils # 3.6 K/mm3 (1.8-7.8); Neutrophils % 60.3 % (37.0-80.0); Platelet Count 321 K/mm3 (142-424); Red Cell Distribution Width 12.1 % (11.5-17.5); White Blood Count 5.9 K/mm3 (4.8-10.8)
[2024-08-24 10:02] LABS: Albumin Level 4.4 g/dl (3.5-5.0); Chloride 103 mmol/L (98-107)
[2024-08-24 10:03] LABS: Potassium 4.2 mmoL/L (3.5-5.1); Sodium 140 mmol/L (136-145)
[2024-08-24 10:05] LABS: Alanine Aminotransferase 24 U/L (12-78); Anion Gap 7.2 mEq/L (5-15); Aspartate Amino Transferase 30 U/L (14-36); Blood Urea Nitrogen 8 mg/dl (7-17); Carbon Dioxide 34 mmol/L (22.0-30.0); Creatinine Clearance Estimated 133 mL/min (50-200); Estimated Glomerular Filt Rate 92 ml/min (>60); GFR (African American) 112 ML/MIN (>60)
[2024-08-24 10:06] LABS: Albumin/Globulin Ratio 1.6 (1.1-1.8); Alkaline Phosphatase 79 U/L (38-126); Bilirubin,Total 0.3 mg/dl (0.2-1.3); Calcium 9.2 mg/dl (8.4-10.2); Globulin 2.8 g/dL (1.3-3.2); Glucose 70 mg/dl (74-100); Total Protein,Serum 7.2 g/dl (6.3-8.2)
--- NOTE | 2024-08-24 10:29 | PC.NURSE ---
I rounded on the pt. no new complaints at this time. pt states she is feeling better. no needs voiced. call atkinson in reach.
[2024-08-24 10:33] LABS: HCG Qualitative, Serum Negative (Negative)
--- NOTE | 2024-08-24 10:50 | PC.NURSE ---
pt to scan ambulatory
[2024-08-24] MEDS: SODIUM CHLORIDE 0.9% 10ML SYR (RAD ONLY) 10 ML IV (11:02)
[2024-08-24] MEDS: IOPAMIDOL-370 (76%);100ML BOTTLE 75 ML IV (11:02)
[2024-08-24] MEDS: 0.9 % SODIUM CHLORIDE 50 ML VIAL IV (11:02)
--- NOTE | 2024-08-24 11:04 | PC.NURSE ---
pt back to room from scan ambulatory
[2024-08-24 11:34] VITALS: BP 135/76; PULSE 77; RESP 18; TEMP 36.7; O2SAT 99
[2024-08-24 11:36] VITALS: BP 135/76; PULSE 77; RESP 16; TEMP 36.9
== END 2024-08-24 11:35 | disposition home or self-care (01) ==
PROVIDERS: Emergency Provider Student in an Organized Health Care Education/Training Program; PCP Nurse Practitioner
DX: R51.9 Headache, unspecified (principal)
CPT/HCPCS: 70450; 70496; 70498; 80053; 84703; 85025; 96361; 96374; 96375; 99285; J0131; J0780; J1200; J7030; Q9967

== ENCOUNTER 2025-01-07 12:30 | Outpatient (CLI) | payer OTHER, SELFPAY ==
--- OUTSIDE RECORDS SUMMARY | 2021-11-14 20:00 | XMS_ITS | Continuity of Care Document ---
Author Organization [facility] Address [address] [place] [address] Phone Care Team Providers Care Manager Book Name Role Phone Oralia BRIGGS Dianna Unavailable Unavailable Allergies, Adverse Reactions, Alerts Substance Reaction Status Criticality PERACETIC ACID Active No Informatio n Medications Medication Instructions Dosage Effective Dates (start - stop) Status Comments hydrocodone 5 mg-acetaminophen 325 mg tablet take 1 tablet by oral route every 6 hours as needed for pain 1.00 tablet - Active 7 day supply. Sx 07/23 Medrol (Boris) 4 mg tablets in a dose pack take by Oral route once follow instructions on box Not Available - Active promethazine 25 mg tablet take 1 tablet by oral route every 4 - 6 hours as needed 25 MG - Active aspirin 325 mg tablet take 1 tablet by oral route every day for 28 days. MUST FINISH PRESCRIPTION - Active oxycodone 5 mg tablet take 1 - 2 tablet by oral route every 6 hours as needed for pain 5 MG - Active diclofenac sodium 75 mg tablet,delayed release Take 1 tab PO BID PRN - Active estradiol 0.1 mg/24 hr semiweekly transdermal patch - Active venlafaxine 37.5 mg tablet - Active cholestyramine (with sugar) 4 gram powder for susp in a packet - Active fluticasone propionate 50 mcg/actuation nasal spray,suspension - Active fluconazole 150 mg tablet - Active cefuroxime axetil 500 mg tablet - Active Saxenda 3 mg/0.5 mL (18 mg/3 mL) subcutaneous pen injector - Active BD Ultra-Fine Short Pen Needle 31 gauge x 5/16 - Active cefdinir 300 mg capsule - Active Corry 0.1 mg/24 hr transdermal patch - Active venlafaxine ER 37.5 mg capsule,extended release 24 hr - Active risperidone 1 mg tablet - Active Procedures Procedure Date Neuromuscular re-edu, ea15 min Physical Tx excercises, ea 15 min Manual therapy 1+ regions, ea 15 mn Neuromuscular re-edu, ea15 min Physical Tx excercises, ea 15 min Manual therapy 1+ regions, ea 15 mn Postop followup visit Neuromuscular re-edu, ea15 min Physical Tx excercises, ea 15 min Manual therapy 1+ regions, ea 15 mn Neuromuscular re-edu, ea15 min Physical Tx excercises, ea 15 min Manual therapy 1+ regions, ea 15 mn PT RE-EVAL EST PLAN CARE Neuromuscular re-edu, ea15 min Physical Tx excercises, ea 15 min Manual therapy 1+ regions, ea 15 mn Postop followup visit Crutch underarm pair no wood Neuromuscular re-edu, ea15 min Physical Tx excercises, ea 15 min Manual therapy 1+ regions, ea 15 mn Neuromuscular re-edu, ea15 min Physical Tx excercises, ea 15 min Manual therapy 1+ regions, ea 15 mn Postop followup visit Neuromuscular re-edu, ea15 min 22 Physical Tx excercises, ea 15 min Manual therapy 1+ regions, ea 15 mn PT EVAL LOW COMPLEX 20 MIN Neuromuscular re-edu, ea15 min 21 PA HIP ARTHRO W/FEMOROPLASTY PA HIP ARTHRO ACETABULOPLASTY PA Hip arthroscopy, surg rem LB/FB HIP ARTHRO W/FEMOROPLASTY HIP ARTHRO ACETABULOPLASTY Hip arthroscopy, surg rem LB/FB 021 Office/outpatient visit,est, mod 2020 DRAIN/INJ JOINT/BURSA W/US Marcaine Methylprednisolone 80 MG inj Office/outpatient visit,est, mod 2020 X-RAY EXAM HIP UNI 2-3 VIEWS Office/outpatient visit,est, mod 2020 Office/outpatient visit,[facility], mod 2020 Advance Directives Directive Yes / No Effective Date File Name No Information Encounters Encounter Description Practice Location Reason(s) For Visit Diagnoses Date Provider Providers Copied on Encounter [facility], [facility] [place] [facility], tel:[phone] No Information 2 Oralia Bustamante. [address] [facility] [place], [facility], [place]. tel:[phone] [facility], [facility] [place] [place], [address], [place] tel:[phone] [facility] Pain in left hip 2 [place], [address], [place]. tel:[phone] Referring Provider: Jermaine Epstein, [address], [place], [address] . tel:[phone] [facility], [address], [place], [address], [place] tel:[phone] [facility] Pain in left hip 2 Oralia Dianna. [address], [place], [address], [place]. tel:[phone] Referring Provider: Jermaine Epstein, [address], [place], [address] . tel:[phone] [facility], [address], [place], [address], [place] tel:[phone] [facility] Pain in left hip 2 Truman Dean. [address], [place], [place], [id number] , [place]. tel:[phone] Referring Provider: Jermaine Epstein, [address], [place], [address] . tel:[phone] [facility], [address], [place], [address], [place] tel:[phone] [facility] No Information 2 Oralia Dianna. [address], [place], [address], [place]. tel:[phone] Referring Provider: Jermaine Epstein, [address], [place], [address] . tel:[phone] [facility], [address], [place], [address], [place] tel:[phone] [facility] Pain in left hip 2 Oralia Dianna. [address], [place], [address], [place]. tel:[phone] Referring Provider: Jermaine Epstein, [address], [place], [address] . tel:[phone] [facility], [address], [place], [address], [place] tel:[phone] [facility] Pain in left hip 2 Oralia Bustamante. [address], [place], [address], [place]. tel:[phone] Referring Provider: Jermaine Epstein, [address], [place], [address] . tel:[phone] [facility], [address], [place], [address], [place] tel:[phone] [facility] Pain in left hip 2 Truman Dean. [address], [place], [place], [id number] , [place]. tel:[phone] Referring Provider: Jermaine Epstein, [address], [place], [address] . tel:[phone] [facility], [address], [place], [address], [place] tel:[phone] [facility] Pain in left hip 2 Truman Dean. [address], [place], [id number] , [place]. tel:[phone] Referring Provider: Jermaine Epstein, [address], [place], [address] . tel:[phone] [facility], [address], [place], [address], [place] tel:[phone] [facility] No Information 2 Yamilex Rivera . [facility] [place], [place], [id number] , . tel:[phone] Referring Provider: Jermaine Epstein, [address], [place], [address] . tel:[phone] [facility], [address], [place], [address], [place] tel:[phone] [facility] Pain in left hip 2 Yamilex Nicole . [address] [place], [place], [id number] , [place]. tel:[phone] Referring Provider: Jermaine Epstein, [address], [place], [address] . tel:[phone] [facility], [address], [place], [address], [place] tel:[phone] [facility] No Information 2 Truman Dean. [address], [place], [place], [id number] , [place]. [phone] Referring Provider: Jermaine Epstein, [address], [place], [address] . tel:[phone] [facility], [address], [place], [address], [place] tel:[phone] [facility] Pain in left hip 2 Truman Dean. [address], [place], [id number] , [place]. [phone] Referring Provider: Jermaine Epstein, [address], [place], [address] . tel:[phone] [facility], [address], [place], [address], [place] tel:[phone] [facility] Pain in left hip 2 Yamilex Nicole . [address] [place], [place], [id number] , [place]. [phone] Referring Provider: Jermaine Epstein, [address], [place], [address] . tel:[phone] [facility], [address], [place], [address], [place] tel:[phone] 700 [facility] No Information 2 Truman Dean. [address], [place], [id number] , [place]. tel:[phone] Referring Provider: Jermaine Epstein, [address] [place], [address] . tel:[phone] [facility], [address], [place], [address], [place] tel:[phone] 700 [facility] Pain in left hip 1 Yamilex Rivera . [address], [place], [id number] , . tel:[phone] Referring Provider: Jermaine Epstein, [address], [place], [address] . tel:[phone] [facility], [address], [place], [address], [place] tel:[phone] 700 [facility] No Information 1 Porter Donnelly. [address], [place], [address], [place]. tel:[phone] Referring Provider: Jermaine Epstein, [address], [place], [address] . tel:[phone] [facility], [address], [place], [address], [place] tel:[phone] 700 [facility] No Information 1 Truman Dean. [address], [place], [id number] , [place]. tel:[phone] Referring Provider: Jermaine Epstein, [address] [place], [address] . tel:[phone] [facility], [address], [place], [address], [place] tel:[phone] 700 [facility] No Information 1 Truman Dean. [address], [place], [id number] , [place]. tel:[phone] Office/outpat ient visit,est, mod [facility], [address], [place], [address], [place] [phone] [facility] Ot specific joint derangements of left hip, NECPain in left hip Apr- 1 Truman Dean. [address], [place], [place], [id number] , [place]. tel:[phone] Referring Provider: Jermaine Epstein, [address], [place], [address] . tel:[phone] [facility], [address], [place], [address], [place] [phone] 700 [facility] Pain in left hip Apr- 1 Porter Donnelly. [address], [place], [address], [place]. tel:[phone] Referring Provider: Jermaine Epstein, [address], [place], [address] . tel:[phone] Office/outpat ient visit,est, mod [facility], [address], [place], [address], [place] [phone] 700 [facility] Pain in left hipOth specific joint derangements of left hip, NEC Apr- 1 Truman Dean. [address], [place], [place], [id number] , [place]. tel:[phone] Referring Provider: Jermaine Epstein, [address], [place], [address] . tel:[phone] Office/outpat ient visit,est, mod [facility], [address], [place], [address], [place] tel:[phone] 700 [facility] general orthopedic (chief complaint) Pain in left hip Mar- 1 Sriram Farrell. [address] [place] [address], [facility], . tel:[phone] Referring Provider: Bud Jimenez, [address] [place], [place], [facility]. tel:[phone] Office/outpat ient visit,[facility], [facility], [facility] [place], [facility], tel:[phone] 700 [facility] general orthopedic (chief complaint) Pain in left hip 1 Sriram Farrell. [facility] [place], [place], [facility], . tel:[phone] Referring Provider: Bud Jimenez, [facility] [place], [place], [facility]. tel:[phone] [facility], [facility] [place], [place], [facility], tel:[phone] 700 [facility] No Information 1 Sriram Farrell. [address] [place] [address], [facility], . tel:[phone] Family History Family Member Type Diagnosis Age At Onset Father Problem (finding) Stroke Mother Problem (finding) Anesthesia reaction Sister Problem (finding) Cancer Mother Problem (finding) Diabetes mellitus Mother Problem (finding) Cancer Mother Problem (finding) Congenital heart diseas e Payers Payer name Insurance type Covered green party ID Authorchavoa max(s) [place] - [id number] Social History Type Description Quantity Date Captured Comments Sex Female Smoking Status No Information Chief Complaint And Reason For Visit No Information Reason For Referral Reason For Referral No Information Plan Of Treatment Date Type Action Status Future Order: Radiology Order MR I Hip W Contrast (63795P), Ordered on: Ordered History Of Present Illness Encounter Date Complaint History Of Prese nt Illness hip general orthopedic FU CT results left hip, [facility] general orthopedic Left hip, 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
--- OUTSIDE RECORDS SUMMARY | 2024-02-21 09:36 | XMS_ITS | Continuity of Care Document ---
Author Name [facility] Organization [facility] Care Team Providers Care Yard Foreman Name Role Phone [facility] Unavailable Unavailable Problems Combined list of problems from Department of Defense and Veterans Affairs facilities. It does not include entries that were removed or entered in error. Problem Status Onset Date Problem Type Date of Resolution Comme nts Source Diagnosis: ICD-10-CM Z71.0 Prsn encntr hlth serv to consult on behalf of another person Active Diagnosis [place] Encounters Combined list of: 1) Encounters from Department of Veterans Affairs facilities going backup to the last 18 months, not all [place] inpatient encounters are included; 2) Encounters from the Department of [facility] facilities going backup to 280 months. Location Location Details Encounter Type Encounter Number Reason For Visit Attending Provider ADM Date DC Date Status Disposition Source [facility] PSYCH DIAGNOSTIC EVALUATION [id number] Diagnos is: ICD-10- CM Z71.0 Prsn encntr hlth serv to consult on behalf of another person NIKITA OLIVAS 11/27 [facility] INDIV [id number] Diagnos is: ICD-10- CM Z71.0 Prsn encntr hlth serv to consult on behalf of another person LONNIE MONTERO 01/03 [facility] Outpatient Encounter [id number] NIKITA OLIVAS 02/20 [facility]
--- OUTSIDE RECORDS SUMMARY | 2024-11-11 10:00 | XMS_ITS | Encounter Summary ---
Author Organization [facility] Address [address] [place] [address] Care Team Providers Care Clam Shovel Operator Name Role Phone Bernadette Montero APRN Primary Care Provider [phone] Reason for Referral * MRI/CAT Scan (Routine) - AFF Authorization Not Needed Specialty Diagnoses / Procedures Referred By Contac t Referred To Contact Orthopedic Surgery Diagnoses Bilateral foot pain Subcutaneous nodule of both feet Procedures MRI FOOT RIGHT WO CONTRAST Shiv Wagoner DPM [address] [place] [address] Phone: tel: fax: [facility] [address] [address] Phone: tel: Referral ID Status Reason Start Date Expiration Date Visits Requested Visits Authorized [id number] AFF Authorization Not Needed 11/11/2024 11/11/2025 1 1 * MRI/CAT Scan (Routine) - AFF Authorization Not Needed Specialty Diagnoses / Procedures Referred By Contac t Referred To Contact Orthopedic Surgery Diagnoses Bilateral foot pain Subcutaneous nodule of both feet Procedures MRI FOOT LEFT WO CONTRAST Shiv Wagoner DPM [address] [place] [address] Phone: tel: fax: [facility] [address] [address] Phone: tel: Referral ID Status Reason Start Date Expiration Date Visits Requested Visits Authorized [id number] AFF Authorization Not Needed 11/11/2024 11/11/2025 1 1 Reason for Visit * Reason Comments Pain Pain Encounter Details Date Type Department Care Team (Late st Contact Info) Description 11/11/2024 10:00 AM EDT Office Visit [facility] [address] [id number] Shiv Wagoner DPM [address] [place] [address] Nodular fasciitis (Primary Dx); Bilateral foot pain Social History Tobacco Use Types Packs/Day Years Used Date Smoking Tobacco: Former Cigarettes 0.5 11 0 07/10/1998 - 07/10/2009 Smokeless Tobacco: Never Comments:smokes marijuana da tanya Alcohol Use Standard Drinks/Week Comments Yes 0 (1 standard drink = 0.6 oz pur e alcohol) socially Overall Financial Resource Strain (CARDIA) Answe r Date Recorded How hard is it for you to pa y for the very basics like food, housing, medical care, and heating? Not very hard 09/27/2022 PHQ-2 Answer Date Recorded PHQ-2 Total Score 0 09/27/2022 Exercise Vital Sign Answer Date Recorde d On average, how many days pe r week do you engage in moderate to strenuous exercise (like a brisk walk)? 5 days Minutes of Exercise per Session Not on file 09/27/2022 Hunger Vital Sign Answer Date Recorded Within the past 12 months, y ou worried that your food would run out before you got the money to buy more. Never true 09/28/19 23 Within the past 12 months, t he food you bought just didn't last and you didn't have money to get more. Never true 09/27/2022 PRAPARE - Transportation Answer Date Re corded In the past 12 months, has l ack of transportation kept you from medical appointments or from getting medications? No 09/08 In the past 12 months, has l ack of transportation kept you from meetings, work, or from getting things needed for daily living? No 09/27/2022 Sexually Active Control Partners Comments Yes Other-see comments Male Total hys terectomy Comments No Sex and Gender Information Value Date Recorded Sex Assigned at Not on file Legal Sex Female 1:51 PM EDT Gender Identity Not on file Sexual Orientation Not on file documented as of this encounter Functional Status * Is the person deaf or does he/she have serious difficulty hearing? Answer Date of Assessment Author No 09/29/2022 5:23 PM EDT Denise Howell RN * Is the person blind or does he/she have serious difficulty seeing even when wearing glasses? Answer Date of Assessment Author No 09/29/2022 5:23 PM EDT Denise Howell RN * Does this person have serious difficulty walking or climbing stairs? Answer Date of Assessment Author No 09/29/2022 5:23 PM EDT Denise Howell RN * Does this person have difficulty dressing or bathing? Answer Date of Assessment Author No 09/29/2022 5:23 PM EDT Denise Howell RN * Because of a physical, mental or emotional condition, does this person have difficulty doing errands alone such as visiting a doctor's office or shopping? Answer Date of Assessment Author No 09/29/2022 5:23 PM SYDT Denise Howell RN documented as of this encounter Mental Status * Because of a physical, mental or emotional condition, does this person have serious difficulty concentrating, remembering or making decisions? Answer Entry Date Author No 09/29/2022 5:23 PM EDT Denise Howell RN documented in this encounter Progress Notes * Shiv Wagoner DPM - 11/11/2024 10:00 AM EDT Images from the original note were not included. PATIENT NAME: Stacia Gaona DATE OF (age): 39 y.o. PHYSICIAN: Shiv Wagoner DPM Date of Visit: 11/11/2024 Subjective: Chief Complaint: Chief Complaint Patient presents with Left Foot - Pain Right Foot - Pain History: Stacia Gaona is a 39 y.o. female. 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 She is describing pain on the prominences at both arches. She describes an insidious onset and a slowly deteriorating course. Past Medical History: Reviewed registration form and medical history. Past Surgical History: Reviewed registration form and medical history. Family History: Reviewed registration form and medical history. Social History: Reviewed registration form and medical history. Review of Systems: Reviewed registration form and medical history. Objective Both arches show painful plantar fascial nodules near the apex of the arch on the medial slip of the plantar fascia. I do not see other abnormalities at this time. Imaging Views of both feet are seen in AP and lateral projections. There are large plantar calcaneal spurs.There is mild cortical thickening at the fifth metatarsals bilaterally. Neither of these areas are painful, and the area of the mid arch shows no abnormalities. This is appropriate for the diagnosis as well as the treatment. Assessment Diagnoses and all orders for this visit: Nodular fasciitis Bilateral foot pain - XR FOOT BILATERAL AP AND LATERAL STANDING; Future - MRI FOOT LEFT WO CONTRAST; Future - MRI FOOT RIGHT WO CONTRAST; Future Plan This patient notes that the use of OTC Powerstep insoles is helpful and her steel toed boot for [id number] weightbearing shift, but hurts the plantar fascial nodules bilaterally. The lack of insole support leads to a fatigue based pain but does not bother the plantar fascial nodules. With this in mind, an MRI of both feet is indicated to evaluate the plantar fascial nodules and consider surgicalexcision among other options. I have ordered the MRI of both feet. I am sending the patient to either Dr. Garcia or Dr. Mcintosh after the MRI for further evaluation and consideration of elective surgical excision. The patient is not restricted except by pain. She will continue using OTC meds as needed. I will follow as directed. DME Summary No orders found for display Shiv Wagoner DPM documented in this encounter Plan of Treatment Scheduled Orders Name Type Priority Associated Diagnoses Orde r Schedule MRI FOOT LEFT WO CONTRAST Imaging Routine Bilateral foot pain 1 Occurrences starting 11/11/2024 until 11/11/2025 MRI FOOT RIGHT WO CONTRAST Imaging Routine Bilateral foot pain 1 Occurrences starting 11/11/2024 until 11/11/2025 documented as of this encounter Results * XR FOOT BILATERAL AP AND LATERAL STANDING (11/11/2024 10:51 AM EDT) Narrative FitzuserCourtney - 11/11/2024 10:51 AM EDT Please see physician's note from office encounter for x-ray imaging result Shiv Wagoner DPCecelia IMG DIAGNOSTIC IMAGING OR DERABLES Final Result documented in this encounter Visit Diagnoses Diagnosis Nodular fasciitis- Primary Other fibromatoses of muscle, ligament, and fascia Bilateral foot pain Pain in limb Bilateral foot pain Pain in limb documented in this encounter Historical Medications * This list may reflect changes made after this encounter. lamoTRIgine (LAMICTAL) 25 mg Oral Tablet TAKE 3 TABLETS BY MOUTH DAILY. IF YOU DEVELOP A RASH, STOP THE MEDICATION AND CALL THE CLINIC 08/07/2024 added in this encounter Care Teams Clam Shovel Operator Relationship Specialty Start Date End Date Bernadette Montero APRN [facility] [place] [address] [place] [id number] PCP - General Nurse Practitioner 12/20/17 documented as of this encounter
--- OUTSIDE RECORDS SUMMARY | 2024-11-11 10:25 | XMS_ITS | Encounter Summary ---
Author Organization [facility] Address [address] [place] [address] Care Team Providers Care Nascar Racer Name Role Phone Bernadette Montero APRN Primary Care Provider [phone] Encounter Details Date Type Department Care Team (Latest Contact Info) Description 11/11/2024 10:25 AM EDT Ancillary Procedure [facility] [address] [id number] Shiv Wagoner, DPCecelia [address] [place] [address] Bilateral foot pain Social History Tobacco Use [...] money to buy more. Never true 09/28/19 Within the past 12 months, t he [...] of Assessment Author No 09/29/2022 5:23 PM Denise Wilson RN * Is the person blind or does he/she have serious difficulty seeing even when wearing glasses? Answer Date of Assessment Author No 09/29/2022 5:23 PM Denise Wilson RN * Does this person have serious difficulty walking or climbing stairs? Answer Date of Assessment Author No 09/29/2022 5:23 PM Denise Wilson RN * Does this person have difficulty dressing or bathing? Answer Date of Assessment Author No 09/29/2022 5:23 PM Denise Wilson RN * Because of a physical, mental or emotional condition, does this person have difficulty doing errands alone such as visiting a doctor's office or shopping? Answer Date of Assessment Author No 09/29/2022 5:23 PM Denise Wilson RN documented as of this encounter Mental Status * Because of a physical, mental or emotional condition, does this person have serious difficulty concentrating, remembering or making decisions? Answer Entry Date Author No 09/29/2022 5:23 PM EDT Denise Howell RN documented in this encounter Plan of Treatment Not on file documented as of this encounter Procedures Procedure Name Priority Date/Time Associated Diagnosis Comments XR FOOT BILATERAL AP AND LATERAL STANDING Routine 11/11/2024 10:51 AM EDT Bilateral foot pain documented in this encounter Results * XR FOOT BILATERAL AP AND LATERAL STANDING (11/11/2024 10:51 AM EDT) Narrative GenericuserCourtney - 11/11/2024 10:51 AM EDT Please see physician's note from office encounter for x-ray imaging result Shiv Wagoner DP IMG DIAGNOSTIC IMAGING OR DERABLES Final Result documented in this encounter Visit Diagnoses Diagnosis Bilateral foot pain Pain in limb documented in this encounter Care Teams Nascar Racer Relationship Specialty Start Date End Date Bernadette Montero APRN [address] [place] [address] [address] [place] [address] PCP - General Nurse Practitioner 12/20/17 documented as of this encounter
--- OUTSIDE RECORDS SUMMARY | 2024-12-17 14:40 | XMS_ITS | Encounter Summary ---
Author Organization [facility] Address [address] [place] [address] Care Team Providers Care Pipe Finishing Supervisor Name Role Phone Bernadette Montero APRN Primary Care Provider [phone] Encounter Details Date Type Department Care Team (Latest Contact Info) Description 12/17/2024 2:40 PM EDT Ancillary Procedure [facility] [address] [id number] Shiv Quiles MD [address] [place] [address] Bilateral hip pain Social History Tobacco Use Types Packs/Day [...] Name Priority Date/Time Associated Diagnosis Comments XR HIPS BILATERAL AP LATERAL W AP PELVIS Routine 12/17/2024 2:57 PM EDT Bilateral hip pain documented in this encounter Results * XR HIPS BILATERAL AP LATERAL W AP PELVIS (12/17/2024 2:57 PM EDT) Narrative [facility] - 12/17/2024 2:57 PM EDT Please see physician's note from office encounter for x-ray imaging result us Shiv Quiles MD IMG DIAGNOSTIC IMAGING ORDERABLES Final Result Performing Organization Address City/State/[facility] Co de Phone Number [facility] documented in this encounter Visit Diagnoses Diagnosis Bilateral hip pain Pain in joint, pelvic region and thigh documented in this encounter Care Teams Pipe Finishing Supervisor Relationship Specialty Start Date End Date Bernadette Montero, NEIL [facility] [address] [place] [phone] PCP - General Nurse Practitioner 12/20/17 documented as of this encounter
--- OUTSIDE RECORDS SUMMARY | 2024-12-17 15:00 | XMS_ITS | Encounter Summary ---
Author Organization [facility] Address [address] [place] [address] Care Team Providers Care Solar Electric Practitioner Name Role Phone Bernadette Montero APRN Primary Care Provider [phone] Encounter Details Date Type Department Care Team (Latest Contact Info) Description 12/17/2024 3:00 PM EDT Office Visit [facility] [address] [id number] Shiv Quiles MD [address] [place] [address] Bilateral hip pain (Primary Dx); Primary osteoarthritis of both hips Social History Tobacco Use Types Packs/Day Years [...] Denise Howell RN documented in this encounter Ordered Prescriptions Prescription Sig Dispense Quantity Refills Last Filled Start Date End Date methylPREDNISolone (MEDROL DOSPACK) 4 mg Oral Tablets, Dose PackIndications:Bi lateral hip pain follow package directions 21 Tablet 12/17/2024 documented in this encounter Progress Notes * Shiv Quiles MD - 12/17/2024 3:00 PM EDT Images from the original note were not included. Name: Stacia Gaona Age: 39 y.o. Sex : female : 1985 Shiv Quiles MD Date of Visit: 12/17/24 CHIEF COMPLAINT: No chief complaint on file. HISTORY: Patient complains of advanced hip osteoarthritis. She has had problems with her bilateral hip over the past several months and has been treated conservatively with grki-sil-cjxyssy anti-inflammatories and activity modification. Pain has progressed significantly over time to the point where the patient has hip pain with activity. History of left hip arthroscopic labral repair 3 years ago at [facility]. Pain located in groin. Allergies Allergen Reactions ??? Oxycodone Hives and Rash ??? Percocet [Oxycodone-Acetaminophen] Hives Past Medical History: Diagnosis Date ??? Anesthesia complication with one surgery she woke up coughing alot ??? Bladder problem ??? Motion sickness ??? Post-operative nausea and vomiting nausea once on the way home ??? Urinary incontinence ??? Vaginal scar 01/29/2024 Past Surgical History: Procedure Laterality Date ??? APPENDECTOMY ??? CHOLECYSTECTOMY ??? CYST REMOVAL Left foot ??? CYSTOCELE REPAIR N/A 08/28/2023 Anterior Repair; Posterior Repair; Enterocele repair, Placement of Retropubic Midurethral Mesh Sling Cystoscopy; Surgeon: Elva Perla MD; Location: [facility]; Service: Gynecology ??? CYSTOSCOPY N/A 02/08/2024 Revision of Vaginal Scar, Cystoscopy, Trigger point injection of suprapubic scar; Surgeon: Elva Perla MD; Location: [facility]; Service: Urogynecology ??? HYSTERECTOMY ??? KNEE SURGERY Left ??? OVARY REMOVAL ??? SHOULDER ARTHROSCOPY Right 12/22/2017 RIGHT SHOULDER ARTHROSCOPY LABRAL REPAIR ; Surgeon: Bud Bhatia MD; Location: [facility]; Service: Orthopedics ??? SHOULDER SURGERY Right ??? TUBAL LIGATION ??? URETHROPEXY N/A 08/28/2023 .; Surgeon: Elva Perla MD; Location: [facility]; Service: Gynecology ??? VULVA SURGERY N/A 02/08/2024 Surgeon: Elva Perla MD; Location: [facility]; Service: Urogynecology PHYSICAL EXAMINATION: General: Well-appearing, pleasant, appropriate affect, no distress, alert and oriented x3. Neuro: Normal neurosensory response to touch. Cardiovascular: No signs of edema. Lymphatic: No signs of lymphangitis. Skin: Intact, warm and dry. Musculoskeletal: Bilateral hip + stinchfield + pain with log roll exam Limited ROM with internal and external rotation Mild ttp over left trochanteric bursa IMPRESSION: Bilateral Hip Mild osteoarthritis PLAN: Diagnoses and all orders for this visit: Bilateral hip pain - XR LUMBAR SPINE AP AND LATERAL; Future - methylPREDNISolone (MEDROL DOSPACK) 4 mg Oral Tablets, Dose Pack; follow package directions Dispense: 21 Tablet; Refill: 0 Primary osteoarthritis of both hips Natural history and expected course discussed. Questions answered. Medrol for acute pain as patient is going on cruise Recommend intra-articular injections if no improvement Follow-up PRN X-RAYS: Two views of the Bilateral hip reveal no acute fracture or dislocation. Mild Hip osteoarthritis. Shiv Quiles MD 12/17/24 documented in this encounter Plan of Treatment Not on file documented as of this encounter Results * XR LUMBAR SPINE AP AND LATERAL (12/17/2024 2:57 PM EDT) Narrative Genericuser, Courtney - 12/17/2024 2:57 PM EDT Please see physician's note from office encounter for x-ray imaging result us Shiv Quiles MD IMG DIAGNOSTIC IMAGING ORDERABLES Final Result documented in this encounter Visit Diagnoses Diagnosis Bilateral hip pain- Primary Pain in joint, pelvic region and thigh Primary osteoarthritis of both hips Primary localized osteoarthrosis, pelvic region and thigh Bilateral hip pain Pain in joint, pelvic region and thigh documented in this encounter Care Teams Solar Electric Practitioner Relationship Specialty Start Date End Date Bernadette Montero APRN [address] [facility] [address] [place] [phone] PCP - General Nurse Practitioner 12/20/17 documented as of this encounter
--- OUTSIDE RECORDS SUMMARY | 2024-12-17 15:15 | XMS_ITS | Encounter Summary ---
Author Organization [facility] Address [address] [place] [address] Care Team Providers Care Bone Char Kiln Operator Name Role Phone Bernadette Montero APRN Primary Care Provider [phone] Encounter Details Date Type Department Care Team (Latest Contact Info) Description 12/17/2024 3:15 PM EDT Ancillary Procedure [facility] [address] [id number] Shiv Quiles MD [address] [place] [address] Bilateral hip pain Social History [...] Name Priority Date/Time Associated Diagnosis Comments XR LUMBAR SPINE AP AND LATERAL Routine 12/17/2024 2:57 PM EDT Bilateral hip pain documented in this encounter Results * XR LUMBAR SPINE AP AND LATERAL (12/17/2024 2:57 PM EDT) Narrative GenericuserCourtney - 12/17/2024 2:57 PM EDT Please see physician's note from office encounter for x-ray imaging result us Shiv Quiles MD IMG DIAGNOSTIC IMAGING ORDERABLES Final Result documented in this encounter Visit Diagnoses Diagnosis Bilateral hip pain Pain in joint, pelvic region and thigh documented in this encounter Care Teams Bone Char Kiln Operator Relationship Specialty Start Date End Date Bernadette Montero APRN [facility] [address] [place] [address] PCP - General Nurse Practitioner 12/20/17 documented as of this encounter
[2025-01-07 19:00] LABS: Alanine Aminotransferase 14 U/L (12-78); Albumin Level 4.0 g/dl (3.5-5.0); Albumin/Globulin Ratio 1.5 (1.1-1.8); Alkaline Phosphatase 73 U/L (38-126); Anion Gap 10.3 mEq/L (5-15); Aspartate Amino Transferase 22 U/L (14-36); Bilirubin,Total 0.5 mg/dl (0.2-1.3); Blood Urea Nitrogen 10 mg/dl (7-17); Calcium 8.5 mg/dl (8.4-10.2); Carbon Dioxide 30 mmol/L (22.0-30.0); Chloride 101 mmol/L (98-107); Cholesterol 226 mg/dl (140-200); Creatinine,Serum 0.80 mg/dl (0.52-1.04); Estimated Glomerular Filt Rate 79 ml/min (>60); GFR (African American) 96 ML/MIN (>60); Globulin 2.7 g/dL (1.3-3.2); Glucose 76 mg/dl (74-100); HDL Cholesterol 99 mg/dl (40-60); Potassium 4.3 mmoL/L (3.5-5.1); Sodium 137 mmol/L (136-145); Total Protein,Serum 6.7 g/dl (6.3-8.2); Triglycerides 73 mg/dl (30-150)
[2025-01-07 19:31] LABS: Thyroid Stimulating Hormone 1.21 uIU/mL (0.465-4.68)
[2025-01-07 19:45] LABS: Hepatitis C Ab Qual. W/ RFX NEGATIVE (Negative)
[2025-01-07 19:49] LABS: Hemoglobin A1C 6.1 % (4.0-6.0)
[2025-01-07 19:50] LABS: Vitamin B12 302 pg/mL (239-931)
[2025-01-09 06:32] LABS: Hepatitis B Surface Antigen Negative (Negative)
--- OUTSIDE RECORDS SUMMARY | 2025-01-09 12:33 | XMS_ITS | Clinical Summary ---
Author Organization [facility] Address [address] [place] [address] Phone Care Team Providers Care New Car Make Ready Worker Name Role Phone Bernadette Montero APRN Primary Care Provider [phone] Allergies Active Allergy Reactions Criticality Noted Date Comments Oxycodone Hives,Rash Medium 12/05/2022 Oxycodone-Acetaminophen Hives Medium 12/20/2017 Medications * This document contains information received from the source organization and may not represent a complete record from that organization. rOPINIRole (REQUIP) 0.5 mg Oral TabletIndicatio ns:restless leg syndrome Take 0.5 mg by mouth nightly as needed. Indications: restless legs syndrome, an extreme discomfort in the calf muscles when sitting or lying down Active cholestyramine (QUESTRAN) 4 gram Oral Powder in Packet Take by mouth daily. 3 Active estradioL (ESTRACE) 2 mg Oral TabletIndicatio ns:Hormone replacement therapy Take 1 Tablet by mouth daily. 90 Tablet 3 3 Active semaglutide (WEGOVY SUBQ) Subcutaneous (Inject under the skin) 2.5 'Pen' once a week. Active mv,calcium,min/ iron/folic/vitK (MULTI FOR HER ORAL) Take 1 Tablet by mouth daily. Active metroNIDAZOLE (METROCREAM) 0.75 % Top CreamIndication s:Rosacea Apply a thin layer BID to the affected areas of the face. 45 g 3 4 Active fluticasone propionate (FLONASE) 50 mcg/actuation Nasl Ogema, Suspension 4 Active cholecalciferol , vitD3,/vit K2 (VITAMIN D3-VITAMIN K2) 250 mcg (10,000 unit)-45 mcg Oral Capsule Take 1 Capsule by mouth daily. Active docusate sodium (COLACE) 100 mg Oral Capsule Take 1 Capsule by mouth 2 times daily. 60 Capsule 2 4 Active senna (SENOKOT) 8.6 mg Oral Tablet Take 1 Tablet by mouth daily as needed for Constipation. 30 Tablet 1 4 Active ondansetron (ZOFRAN-ODT) 4 mg Oral Tablet, Rapid Dissolve Take 1 Tablet by mouth every 6 hours as needed for Nausea. 30 Tablet 4 Active HYDROcodone-ruth taminophen (NORCO) 5-325 mg Oral Tablet Take 1 Tablet by mouth every 4 hours as needed for Major Surgery/Trauma (G89.18). 10 Tablet 4 Active busPIRone (BUSPAR) 10 mg Oral Tablet Take 10 mg by mouth 3 times daily. 4 Active cycloSPORINE (RESTASIS) 0.05 % Opht Dropperette Place 1 Drop into both eyes 2 times daily. 4 Active PARoxetine (PAXIL) 10 mg Oral Tablet Take 10 mg by mouth daily. 4 Active estradioL (ESTRACE) 0.01 % (0.1 mg/gram) Vagl Cream Place vaginally daily. 4 Active estradioL (ESTRACE) 0.01 % (0.1 mg/gram) Vagl CreamIndication s:Vaginal atrophy Apply pea-sized amount using fingertip into the vagina (or as instructed) nightly 2-3 x per week. 42.5 g 1 4 Active Additional Information Patient not taking.Reason: Therapy Completed, Reported on 12/17/2024 meloxicam (MOBIC) 15 mg Oral TabletIndicatio ns:Acute pain of both knees,Chondroma lacia of left patella,Chondro malacia of right patella Take 1 Tablet by mouth daily. 30 Tablet 2 5 Active lamoTRIgine (LAMICTAL) 25 mg Oral Tablet TAKE 3 TABLETS BY MOUTH DAILY. IF YOU DEVELOP A RASH, STOP THE MEDICATION AND CALL THE CLINIC 5 Active methylPREDNISol one (MEDROL DOSPACK) 4 mg Oral Tablets, Dose PackIndications :Bilateral hip pain follow package directions 21 Tablet 5 Active Active Problems Problem Noted Date Diagnosed Date Vaginal scar 12/18/2023 Left knee pain 02/24/2023 Pyelonephritis 12/04/2022 Urinary tract infection with hematuria Right flank pain 12/03/2022 Bilateral flank pain 09/26/2022 Complete rupture of rotator cuff 09/13/2007 Overview (09/26/2022): Resolved Problems Problem Noted Date Diagnosed Date Resolved Date Stress incontinence in female 05/02/2023 12/13/2023 Rectocele 05/02/2023 12/13/2023 Female cystocele 05/02/2023 12/13/2023 Acute kidney injury 09/25/2022 12/07/19 23 Encounters Date Type Department Care Team Description 12/17/2024 3:15 PM EDT Ancillary Procedure [facility] Antonio Mayes [address] [address] Shiv Quiles MD Bilateral hip pain 12/17/2024 3:00 PM EDT Office Visit Juan Antonio Mayes [address] [address] Shiv Quiles MD Bilateral hip pain (Primary Dx); Primary osteoarthritis of both hips 12/17/2024 2:40 PM EDT Ancillary Procedure [facility] Antonio Mayes [address] [address] Shiv Quiles MD Bilateral hip pain 11/11/2024 10:25 AM EDT Ancillary Procedure Juan Antonio Mayes [address] [address] Shiv Wagoner DPM Bilateral foot pain 11/11/2024 10:00 AM EDT Office Visit [facility]y Janice [address] [address] Shiv Wagoner DPM Nodular fasciitis (Primary Dx); Bilateral foot pain 10/21/2024 9:00 AM EDT [facility] [address] [place] [address] Ole Saab MD Acute pain of both knees 10/21/2024 8:45 AM EDT Office Visit Juan Antonio Mayes [address] [facility] [place] [address] Ole Saab MD Acute pain of both knees (Primary Dx); Chondromalacia of left patella; Chondromalacia of right patella from Last 3 Months Surgical History Surgery Date Site/Laterality Comments CHOLECYSTECTOMY KNEE SURGERY Left CYST REMOVAL Left foot HYSTERECTOMY TUBAL LIGATION SHOULDER SURGERY Right APPENDECTOMY SHOULDER ARTHROSCOPY 12/22/2017 Right RIGHT SHOULDER ARTHROSCOPY LABRAL REPAIR ; Surgeon: Bud Bhatia MD; Location: [facility]; Service: Orthopedics Medical devices from this surgery are in the Medical Devices section. CYSTOCELE REPAIR 08/28/2023 N/A Anterior Repair; Posterior Repair; Enterocele repair, Placement of Retropubic Midurethral Mesh Sling Cystoscopy; Surgeon: Elva Perla MD; Location: [facility]; Service: Gynecology Medical devices from this surgery are in the Medical Devices section. URETHROPEXY 08/28/2023 N/A .; Surgeon: Elva Perla MD; Location: [facility]; Service: Gynecology Medical devices from this surgery are in the Medical Devices section. CYSTOSCOPY 02/08/2024 N/A Revision of Vaginal Scar, Cystoscopy, Trigger point injection of suprapubic scar; Surgeon: Elva Perla MD; Location: [facility]; Service: Urogynecology VULVA SURGERY 02/08/2024 N/A Surgeon: Elva Perla MD; Location: [facility]; Service: Urogynecology OVARY REMOVAL Medical History Medical History Date Comments Post-operative nausea and vomiting nausea once on the way home Anesthesia complication with one surgery she woke up coughing alot Motion sickness Bladder problem Vaginal scar 01/29/2024 Urinary incontinence Family History Medical History Relation Name Comments Irritable Bowel Syndrome Brother Cresencio Gaona Colon Polyps Father Cancer Maternal Aunt Sarah [place] Crohn's Disease Maternal Aunt Sarah [place] Cancer Mother Zee gaona Colon Polyps Mother Zee gaona Irritable Bowel Syndrome Mother Zee gaona Ulcerative Colitis Mother Zee gaona Breast Cancer Sister Florina Lezama Cancer Sister Florina Lezama Anesth Problems Neg Hx Relation Name Status Comments Brother Cresencio Gaona Father Alive Maternal Aunt Sarah [place] Mother Zee gaona Alive Sister Florina Lezama Social History Tobacco Use Types Packs/Day Years [...] on file Sexual Orientation Not on file Obstetrics History Para Term AB IAB SAB Ectopic Multiple Livin g Live Births 2 2 2 2 2 Date Outcome GA Total Labor Labor/2nd/3rd Weight Sex Type Anes PTL Yeimy A1 A5 Name Clin Term F Vag-S pont Living Term M Vag-S pont Living Last Filed Vital Signs Vital Sign Reading Time Taken Comments Blood Pressure 113/56 02/08/2024 4:06 PM EDT Pulse 66 04/10/2024 10:58 AM EDT Temperature 36.1 C (97 F) 02/21/2024 1:00 PM EDT Respiratory Rate 14 02/08/2024 4:06 PM EDT Oxygen Saturation 98% 04/10/2024 10:58 AM EDT Inhaled Oxygen Concentration - - Weight 79.4 kg (175 lb) 04/10/2024 10:58 AM EDT Height 167.6 cm (5' 6 ) 01/29/2024 5:00 PM EDT Body Mass Index 28.25 01/29/2024 5:00 PM EDT Plan of Treatment Health Maintenance Due Date Last Done Comments Annual Wellness Exam 1986 Hepatitis B Vaccine (1 of 3 - 19+ 3-dose series) 2002 Cervical Cancer Screening 02/07/2004 Pap Smear 02/07/2004 HPV/Pap Cotest 2013 COVID-19 Vaccine ( season) 2024 10/29/2020, 10/08/2020 Influenza Vaccine (#1) 2025 , 03/31/2020, 04/23/2019, Additional history exists Breast Cancer Screening 04/16/2026 04/16/20 24, 04/19/2023, 04/10/2023 DTaP/TDaP/Td (4 - Td or Tdap) 10/16/2034 10/16/2024, 10/11/2018, 09/14/1996 Meningococcal B Vaccine Aged Out No l onger eligible based on patient's age to complete this topic Pneumococcal Vaccine 0-49 Aged Out No longer eligible based on patient's age to complete this topic Medical Devices Implanted Type Area Industrial Custodian Device Identifier Shelf Expiration Date Model / Serial / Lot [place] Iconix 1.4mm With 1 Strand #2 Forced Fiber - [id number] Implanted:Qty: 1 on 12/22/2017 by Bud Bhatia MD at [facility] Right: Shoulder RUPA:ENDOSCO PY 09/29/2019 [id number] / / [id number] [place] Iconix 1.4mm With 1 Strand #2 Forced Fiber - [id number] Implanted:Qty: 1 on 12/22/2017 by Bud Bhatia MD at [facility] Right: Shoulder RUPA:ENDOSCO PY 08/14/2019 [id number] / / [id number] Desara Blue Tv Transvaginal Mesh Sling - [id number] Implanted:Qty: 1 on 08/28/2023 by Elva Perla MD at [facility] N/A: Vagina [employer] 04/18/2026 [id number] / / [id number] Procedures Procedure Name Priority Date/Time Associated Diagnosis Comments XR LUMBAR SPINE AP AND LATERAL Routine 12/17/2024 2:57 PM EDT Bilateral hip pain XR HIPS BILATERAL AP LATERAL W AP PELVIS Routine 12/17/2024 2:57 PM EDT Bilateral hip pain XR FOOT BILATERAL AP AND LATERAL STANDING Routine 11/11/2024 10:51 AM EDT Bilateral foot pain XR KNEE BILATERAL AP LATERAL AND SUNRISE STANDING Routine 10/21/2024 8:42 AM EDT Acute pain of both knees MM MAMMO DIGITAL JULIAN SCREEN BILAT Routine 04/16/2024 1:47 PM EDT Encounter for screening mammogram for malignant neoplasm of breast from Last 3 Months or Most Recently Relevant to Health Maintenance Results * XR LUMBAR SPINE AP AND LATERAL (12/17/2024 2:57 PM EDT) Narrative Courtney Cyr - 12/17/2024 2:57 PM EDT Please see physician's note from office encounter for x-ray imaging result us Shiv Quiles MD IMG DIAGNOSTIC IMAGING ORDERABLES Final Result * XR HIPS BILATERAL AP LATERAL W AP PELVIS (12/17/2024 2:57 PM EDT) Narrative [facility] - 12/17/2024 2:57 PM EDT Please see physician's note from office encounter for x-ray imaging result Shiv Quiles MD IMG DIAGNOSTIC IMAGING ORDERABLES Final Result [facility] * XR FOOT BILATERAL AP AND LATERAL STANDING (11/11/2024 10:51 AM EDT) Narrative Genericuser, Audit - 11/11/2024 10:51 AM EDT Please see physician's note from office encounter for x-ray imaging result Shiv HUERTAM IMG DIAGNOSTIC IMAGING OR DERABLES Final Result * XR KNEE BILATERAL AP LATERAL AND SUNRISE STANDING (10/21/2024 8:42 AM EDT) Narrative Devonr, Audit - 10/21/2024 8:42 AM EDT Please see physician's note from office encounter for x-ray imaging result Ole Saab MD IMG DIAGNOSTIC IMAGING O RDERABLES Final Result * MM MAMMO DIGITAL JULIAN SCREEN BILAT (04/16/2024 1:47 PM EDT) Anatomical Region Laterality Modality Breast Bilateral Mammography 04/16/2024 1:47 PM EDT Impressions 04/16/2024 3:06 PM EDT Negative ([id number]) RECOMMENDATION: Routine Screening Mammogram in 1 Year Bilateral No additional recommendation No additional laterality COMMENTS: Narrative 04/16/2024 3:06 PM EDT EXAM: MM MAMMO DIGITAL JULIAN SCREEN BILAT EXAM DATE: 04/16/2024 1:47 PM INDICATION: Z12.31-Encounter for screening mammogram for malignant neoplasm of [id number] COMPARISON STUDIES: Compared with prior studies the most recent being 04/10/2023 TISSUE DENSITY: There are scattered areas of fibroglandular density. FINDINGS: No mammographic evidence of malignancy. Procedure Note Kris Kelsey MD - 04/16/2024 EXAM: MM MAMMO DIGITAL JULIAN SCREEN BILAT EXAM DATE: 04/16/2024 1:47 PM INDICATION: Z12.31-Encounter for screening mammogram for malignantneoplasm of [id number] COMPARISON STUDIES: Compared with prior studies the most recent being04/10/2023 TISSUE DENSITY: There are scattered areas of fibroglandular density. FINDINGS: No mammographic evidence of malignancy. IMPRESSION: Negative ([id number]) RECOMMENDATION: Routine Screening Mammogram in 1 Year Bilateral No additional recommendation No additional laterality COMMENTS: Bernadette Montero COMPUTER FORENSICS EXAMINER IMG MAMMOGRAPHY ORDERABLES Fin al Result from Last 3 Months or Most Recently Relevant to Health Maintenance Insurance PPO [employer] PPO ANTHEM PPO AETNA POS AETNA POS Advance Directives For more information, please contact: [phone] * Full Code (Latest Code Status on File) Date Activated Date Inactivated Comments 12/04/2022 11:38 AM 12/06/2022 6:53 PM * Full Code Date Activated Date Inactivated Comments 09/25/2022 6:30 PM 09/29/2022 10:20 PM Care Teams New Car Make Ready Worker Relationship Specialty Start Date End Date Bernadette Montero APRN [facility] [place] [address] [place] [address] PCP - General Nurse Practitioner 12/20/17
== END 2025-01-07 23:59 | disposition home or self-care (01) ==
LOC: LAB.DROPOF 01-09 12:31
PROVIDERS: PCP Nurse Practitioner; Visit Provider Nurse Practitioner
DX: E78.5 Hyperlipidemia, unspecified (principal); E66.9 Obesity, unspecified; Z11.59 Encounter for screening for other viral diseases; E53.8 Deficiency of other specified B group vitamins
CPT/HCPCS: 80053; 80061; 82607; 83036; 84443; 86803; 87340; 87389

== ENCOUNTER 2025-02-19 12:00 | Outpatient (CLI) | payer OTHER, SELFPAY ==
--- OUTSIDE RECORDS SUMMARY | 2021-11-14 20:00 | XMS_ITS | Continuity of Care Document ---
Author Organization [facility] Address [address] [place] [address] Phone Care Team Providers Care Pricing Intern Name Role Phone Oralia BRIGGS Dianna Unavailable [...] instructions on box Not Available - Active oxycodone 5 mg tablet take 1 - 2 tablet by oral route every 6 hours as needed for pain 5 MG - Active aspirin 325 mg tablet take 1 tablet by oral route every day for 28 days. MUST FINISH PRESCRIPTION - Active promethazine 25 mg tablet take 1 tablet by oral route every 4 - 6 hours as needed 25 MG - Active diclofenac sodium 75 mg tablet,delayed release Take 1 tab PO BID PRN - Active estradiol 0.1 mg/24 hr semiweekly transdermal patch - Active venlafaxine 37.5 mg tablet - Active cholestyramine (with sugar) 4 gram powder for susp in a packet - Active cefuroxime axetil 500 mg tablet - Active fluconazole 150 mg tablet - Active fluticasone propionate 50 mcg/actuation nasal spray,suspension - Active Saxenda 3 mg/0.5 mL (18 [...] 2-3 VIEWS Office/outpatient visit,est, mod 2020 Office/outpatient visit,[facility], mod 2020 Advance Directives Directive Yes / No Effective Date File Name No Information Encounters Encounter Description Practice Location Reason(s) For Visit Diagnoses Date Provider Providers Copied on Encounter [facility], [facility] [facility], tel:[phone] No Information 2 Oralia Bustamante. [address] [place], [facility], [place]. tel:[phone] [facility], [facility] [place], [address], [place] tel:[phone] [facility] Pain in left hip 2 [place], [address], [place]. tel:[phone] Referring Provider: Jermaine Epstein, [address], [place], [address] . tel:[phone] [facility], [address], [place], [address], [place] tel:[phone] [facility] Pain in left hip 2 Oralia Dianna. [address], [place], [address], [place]. tel:[phone] Referring Provider: Jermaine Epstein, [address], [place], [address] . tel:[phone] [facility], [address], [place], [address], [place] tel:[phone] [facility] Pain in left hip 2 Truman Dean. [address], [place], [place], [id number] , [place]. tel:[phone] Referring Provider: Jermaine Epstein, [address], [place], [address] . tel:[phone] [facility], [address], [place], [address], [place] tel:[phone] [facility] No Information 2 Oralia Dianna. [address], [place], [address], [place]. tel:[phone] Referring Provider: Jermaine Epstein, [address], [place], [address] . tel:[phone] [facility], [address], [place], [address], [place] tel:[phone] [facility] Pain in left hip 2 Oralia Dianna. [address], [place], [address], [place]. tel:[phone] Referring Provider: Jermaine Epstein, [address], [place], [address] . tel:[phone] [facility], [address], [place], [address], [place] tel:[phone] [facility] Pain in left hip 2 Oralia Bustamante. [address], [place], [address], [place]. tel:[phone] Referring Provider: Jermaine Epstein, [address], [place], [address] . tel:[phone] [facility], [address], [place], [address], [place] tel:[phone] [facility] Pain in left hip 2 Truman Dean. [address], [place], [place], [id number] , [place]. tel:[phone] Referring Provider: Jermaine Epstein, [address], [place], [address] . tel:[phone] [facility], [address], [place], [address], [place] tel:[phone] [facility] Pain in left hip 2 Truman Dean. [address], [place], [id number] , [place]. tel:[phone] Referring Provider: Jermaine Epstein, [address], [place], [address] . tel:[phone] [facility], [address], [place], [address], [place] tel:[phone] [facility] No Information 2 Yamilex Rivera . [facility] [employer] [place], [place], [id number] , . tel:[phone] Referring Provider: Jermaine Epstein, [address], [place], [address] . tel:[phone] [facility], [address], [place], [address], [place] tel:[phone] [facility] Pain in left hip 2 Yamilex Nicole . [address] [employer] [place], [place], [id number] , [place]. tel:[phone] Referring Provider: Jermaine Epstein, [address], [place], [address] . tel:[phone] [facility], [address], [place], [address], [place] tel:[phone] [facility] No Information 2 Truman Dean. [address], [place], [place], [id number] , [place]. [phone] Referring Provider: Jermaine Epstein, [address], [place], [address] . tel:[phone] [facility], [address], [place], [address], [place] tel:[phone] [facility] Pain in left hip 2 Truman Dean. [address], [place], [id number] , [place]. [phone] Referring Provider: Jermaine Epstein, [address], [place], [address] . tel:[phone] [facility], [address], [place], [address], [place] tel:[phone] [facility] Pain in left hip 2 Yamilex Nicole . [address] [employer] [place], [place], [id number] , [place]. [phone] Referring Provider: Jermaine Epstein, [address], [place], [address] . tel:[phone] [facility], [address], [place], [address], [place] tel:[phone] 700 [facility] No Information 2 Truman Dean. [address], [place], [id number] , [place]. tel:[phone] Referring Provider: Jermaine Epstein, [address] [place], [address] . tel:[phone] [facility], [address], [place], [address], [place] tel:[phone] 700 [facility] Pain in left hip 1 Yamilex Rivera . [address], [id number] , . tel:[phone] Referring Provider: Jermaine Epstein, [address], [place], [address] . tel:[phone] [facility], [address], [place], [address], [place] tel:[phone] 700 [facility] No Information 1 Porter Donnelly. [address], [place], [address], [place]. tel:[phone] Referring Provider: Jermaine Epstein, [address], [place], [address] . tel:[phone] [facility], [address], [place], [address], [place] tel:[phone] 700 [facility] No Information 1 Truman Dean. [address], [place], [id number] , [place]. tel:[phone] Referring Provider: Jermaine Epstein, [address] [place], [address] . tel:[phone] [facility], [address], [place], [address], [place] tel:[phone] 700 [facility] No Information 1 Truman Dean. [address], [place], [id number] , [place]. tel:[phone] Office/outpat ient visit,est, mod [facility], [address], [place], [address], [place] [phone] 700 [facility] Ot specific joint derangements of left hip, NECPain in left hip Apr- 1 Truman Dean. [address], [place], [place], [id number] , [place]. tel:[phone] Referring Provider: Jermaine Epstein, [address], [place], [address] . tel:[phone] [facility], [address], [place], [address], [place] [phone] 700 [facility] Pain in left hip Apr- 1 Porter Donnelly. [address], [place], [address], [place]. tel:[phone] Referring Provider: Jermaine Epstein, [address], [place], [address] . tel:[phone] Office/outpat ient visit,est, mod [facility], [address], [place], [address], [place] [phone] 700 [facility] Pain in left hipOth specific joint derangements of left hip, NEC Apr- 1 Truman Dean. [address], [place], [place], [id number] , [place]. tel:[phone] Referring Provider: Jermaine Epstein, [address], [place], [address] . tel:[phone] Office/outpat ient visit,est, mod [facility], [address], [place], [address], [place] tel:[phone] [facility] general orthopedic (chief complaint) Pain in left hip Mar- 1 Sriram Farrell. [address] [place] [address], [facility], . tel:[phone] Referring Provider: Bud Jimenez, [address], [place], [facility]. tel:[phone] Office/outpat ient visit,[facility], [facility], [facility] [place], [place], [facility], tel:[phone] 700 [place] general orthopedic (chief complaint) Pain in left hip 1 Sriram Farrell. [facility] [employer] [place], [place], [facility], . tel:[phone] Referring Provider: Bud Jimenez, [facility] [employer] [place], [place], [facility]. tel:[phone] [facility], [facility] [place], [place], [facility], tel:[phone] 700 [place] No Information 1 Sriram Farrell. [address] [place] [address], [facility], . tel:[phone] Family History Family Member Type Diagnosis Age At Onset Father Problem (finding) Stroke Mother Problem (finding) Anesthesia reaction Sister Problem (finding) Cancer Mother Problem (finding) Diabetes mellitus Mother Problem (finding) Cancer Mother Problem (finding) Congenital heart diseas e Payers Payer name Insurance type Covered republican ID Authorchavoa max(s) [place] - [id number] Social History Type Description Quantity Date Captured Comments Sex Female Smoking Status No Information Chief Complaint And Reason For Visit No Information Reason For Referral Reason For Referral No Information Plan Of Treatment Date Type Action Status Future Order: Radiology Order MR I Hip W Contrast ([id number]), Ordered on: Ordered History Of Present Illness Encounter Date Complaint History Of Prese nt Illness hip general orthopedic FU CT results left hip, [facility] Left hip, 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
--- OUTSIDE RECORDS SUMMARY | 2024-02-21 09:36 | XMS_ITS | Continuity of Care Document ---
Author Name [facility] Organization [facility] Care Team Providers Care Claim Review Medical Director Name Role Phone [facility] Unavailable Unavailable Problems Combined list of problems from Department of Defense and Veterans Affairs facilities. It does not include entries that were removed or entered in error. Problem Status Onset Date Problem Type Date of Resolution Comme nts Source Diagnosis: ICD-10-CM Z71.0 Prsn encntr hlth serv to consult on behalf of another person Active Diagnosis [place] Encounters Combined list of: 1) Encounters from Department of Veterans Affairs facilities going backup to the last 18 months, not all [place] inpatient encounters are included; 2) Encounters from the Department of [facility] facilities going backup to 280 months. Location Location Details Encounter Type Encounter Number Reason For Visit Attending Provider ADM Date DC Date Status Disposition Source [facility] PSYCH DIAGNOSTIC EVALUATION [id number] Diagnos is: ICD-10- CM Z71.0 Prsn encntr hlth serv to consult on behalf of another person NIKITA OLIVAS 11/27 [facility] IVNTJ INDIV [id number] Diagnos is: ICD-10- CM Z71.0 Prsn encntr hlth serv to consult on behalf of another person LONNIE MONTERO 01/03 [facility] Outpatient Encounter [id number] NIKITA OLIVAS 02/20 [facility]
[2025-02-19 20:00] LABS: Hematocrit 40.4 % (37.0-47.0); Hemoglobin 13.3 g/dL (12.2-16.2); Immature Granulocytes % 0.2 %; Mean Corpuscular HGB Conc 32.9 g/dL (31.8-35.4); Mean Corpuscular Hemoglobin 29.7 pg (27.0-31.2); Mean Corpuscular Volume 90.2 fl (81-99); Nucleated Red Blood Cells % 0 %; Platelet Count 295 K/mm3 (142-424); Red Blood Count 4.48 M/mm3 (4.20-5.40); Red Cell Distribution Width-SD 39.1 fL; White Blood Count 4.6 K/mm3 (4.8-10.8)
[2025-02-19 20:21] LABS: Albumin Level 4.4 g/dl (3.5-5.0); Chloride 102 mmol/L (98-107); Potassium 4.2 mmoL/L (3.5-5.1); Sodium 138 mmol/L (136-145)
[2025-02-19 20:23] LABS: Blood Urea Nitrogen 11 mg/dl (7-17); Creatinine,Serum 0.70 mg/dl (0.52-1.04); Estimated Glomerular Filt Rate 92 ml/min (>60); GFR (African American) 111 ML/MIN (>60)
[2025-02-19 20:24] LABS: Alanine Aminotransferase 17 U/L (12-78); Albumin/Globulin Ratio 1.6 (1.1-1.8); Alkaline Phosphatase 77 U/L (38-126); Anion Gap 11.2 mEq/L (5-15); Aspartate Amino Transferase 25 U/L (14-36); Bilirubin,Total 0.4 mg/dl (0.2-1.3); Calcium 9.1 mg/dl (8.4-10.2); Carbon Dioxide 29 mmol/L (22.0-30.0); Globulin 2.7 g/dL (1.3-3.2); Glucose 87 mg/dl (74-100); Total Protein,Serum 7.1 g/dl (6.3-8.2)
[2025-02-19 20:57] LABS: Thyroid Stimulating Hormone 1.25 uIU/mL (0.465-4.68)
--- OUTSIDE RECORDS SUMMARY | 2025-02-21 12:10 | XMS_ITS | Clinical Summary ---
Author Organization [facility] Address [address] [place] [address] Phone Care Team Providers Care Race Relations Adviser Name Role Phone Bernadette Montero APRN Primary Care Provider [phone] Allergies Active Allergy Reactions Criticality Noted Date [...] Active fluticasone propionate (FLONASE) 50 mcg/actuation Nasl Garner, Suspension 4 Active cholecalciferol , vitD3,/vit K2 [...] 3:15 PM EDT Ancillary Procedure Juan Antonio Camacho [address] [place] [address] Shiv Quiles MD Bilateral hip pain 12/17/2024 3:00 PM EDT Office Visit Juan Antonio Camacho [address] [address] Shiv Quiles MD Bilateral hip pain (Primary Dx); Primary osteoarthritis of both hips 12/17/2024 2:40 PM EDT Ancillary Procedure Juan Antonio Camacho [address] [place] [address] Shiv Quiles MD Bilateral hip pain from Last 3 Months Surgical History Surgery Date Site/Laterality Comments CHOLECYSTECTOMY KNEE SURGERY Left CYST REMOVAL Left foot HYSTERECTOMY TUBAL LIGATION SHOULDER SURGERY Right APPENDECTOMY SHOULDER ARTHROSCOPY 12/22/2017 Right RIGHT SHOULDER ARTHROSCOPY LABRAL REPAIR ; Surgeon: Bud Bhatia MD; Location: [facility]; Service: Orthopedics Medical devices from this surgery are in the Medical Devices section. CYSTOCELE REPAIR 08/28/2023 N/A Anterior Repair; Posterior Repair; Enterocele repair, Placement of Retropubic Midurethral Mesh Sling Cystoscopy; Surgeon: Elva Perla MD; Location: [facility]; Service: Gynecology Medical devices from this surgery are in the Medical Devices section. URETHROPEXY 08/28/2023 N/A .; Surgeon: Elva Perla MD; Location: [facility]; Service: Gynecology Medical devices from this surgery are in the Medical Devices section. CYSTOSCOPY 02/08/2024 N/A Revision of Vaginal Scar, Cystoscopy, Trigger point injection of suprapubic scar; Surgeon: Elva Perla MD; Location: [facility]; Service: Urogynecology VULVA SURGERY 02/08/2024 N/A N/A Vagina /N/A Surgeon: Elva Perla MD; Location: [facility]; Service: Urogynecology OVARY REMOVAL Medical History Medical History Date Comments Post-operative nausea and vomiting nausea once on the way home Anesthesia complication with one surgery she woke up coughing alot Motion sickness Bladder problem Vaginal scar 01/29/2024 Urinary incontinence Family History Medical History Relation Name Comments Irritable Bowel Syndrome Brother Cresencio De Los Santos Colon Polyps Father Cancer Maternal Aunt Sarah Monroe Crohn's Disease Maternal Aunt Sarah [place] Cancer Mother Zee de los santos Colon Polyps Mother Zee de los santos Irritable Bowel Syndrome Mother Zee de los santos Ulcerative Colitis Mother Zee de los santos Breast Cancer Sister Florina Lezama Cancer Sister Florina Lezama Anesth Problems Neg Hx Relation Name Status Comments Brother Cresencio De Los Santos Father Alive Maternal Aunt Sarah [place] Mother Zee de los santos Alive Sister Florina Lezama Social History Tobacco [...] Smear 02/07/2004 HPV/Pap Cotest 2013 COVID-19 Vaccine (2023- season) 2024 10/29/2020, 10/08/2020 Influenza Vaccine (#1) [...] this topic Medical Devices Implanted Type Area Yarn Dry Room Worker Device Identifier Shelf Expiration Date Model / Serial / Lot [place] Iconix 1.4mm With 1 Strand #2 Forced Fiber - [id number] Implanted:Qty: 1 on 12/22/2017 by Bud Bhatia MD at [facility] Right: Shoulder RUPA:ENDOSCO PY 09/29/2019 [id number] / / [id number] [place] Iconix 1.4mm With 1 Strand #2 Forced Fiber - [id number] Implanted:Qty: 1 on 12/22/2017 by Bud Bhatia MD at [facility] Right: Shoulder RUPA:ENDOSCO PY 08/14/2019 [id number] / / [id number] Desara Blue Tv Transvaginal Mesh Sling - [id number] Implanted:Qty: 1 on 08/28/2023 by Elva Perla MD at [facility] N/A: Vagina [employer] 04/18/2026 EDITH-DS01 BTV / / [id number] Procedures Procedure Name Priority Date/Time Associated Diagnosis Comments XR LUMBAR SPINE AP AND LATERAL Routine 12/17/2024 2:57 PM EDT Bilateral hip pain XR HIPS BILATERAL AP LATERAL W AP PELVIS Routine 12/17/2024 2:57 PM EDT Bilateral hip pain MM MAMMO DIGITAL JULIAN SCREEN BILAT Routine [...] x-ray imaging result us Shiv Quiles MD [facility] DIAGNOSTIC IMAGING ORDERABLES Final Result * XR HIPS BILATERAL AP LATERAL W AP PELVIS (12/17/2024 2:57 PM EDT) Narrative ORTHOCINCY - 12/17/2024 2:57 PM EDT Please see physician's note from office encounter for x-ray imaging result us Shiv Quiles MD [facility] DIAGNOSTIC IMAGING ORDERABLES Final Result ORTHOCINCY * MM MAMMO DIGITAL JULIAN SCREEN BILAT (04/16/2024 1:47 PM EDT) Anatomical Region Laterality Modality Breast Bilateral Mammography 04/16/2024 1:47 PM EDT Impressions 04/16/2024 3:06 PM EDT Negative ([id number]) RECOMMENDATION: Routine Screening Mammogram in 1 Year Bilateral No additional recommendation No additional laterality COMMENTS: Narrative 04/16/2024 3:06 PM EDT EXAM: MM MAMMO DIGITAL JULIAN SCREEN BILAT EXAM DATE: 04/16/2024 1:47 PM INDICATION: Z12.31-Encounter for screening mammogram for malignant neoplasm of [id number] COMPARISON STUDIES: Compared with prior studies the most recent being 04/10/2023 TISSUE DENSITY: There are scattered areas of fibroglandular density. FINDINGS: No mammographic evidence of malignancy. Procedure Note Kris Kelsey MD - 04/16/2024 EXAM: MM MAMMO DIGITAL JULIAN SCREEN BILAT EXAM DATE: 04/16/2024 1:47 PM INDICATION: Z12.31-Encounter for screening mammogram for malignantneoplasm of [id number] COMPARISON STUDIES: Compared with prior studies the most recent being04/10/2023 TISSUE DENSITY: There are scattered areas of fibroglandular density. FINDINGS: No mammographic evidence of malignancy. IMPRESSION: Negative ([id number]) RECOMMENDATION: Routine Screening Mammogram in 1 Year Bilateral No additional recommendation No additional laterality COMMENTS: Bernadette Montero INNERSOLE FITTER IMG MAMMOGRAPHY ORDERABLES Fin al Result from Last 3 Months or Most Recently Relevant to Health Maintenance Insurance ANTHEM PPO ANTHEM PPO Member Subscriber Plan / Payer (Ef fective 2023-Present) Name:Stacia De Los Santos Relation to Subscriber:Self Name:Stacia De Los Santos Payer ID:[id number] (NAIC) Group ID:Not on file Type:Not on file Address: [address] [place] [phone] ANTHEM PPO Member Subscriber Plan / Payer (Ef fective 2023-Present) Name:Stacia De Los Santos Relation to Subscriber:Self Name:Stacia De Los Santos Payer ID:[id number] (NAIC) Group ID:Not on file Type:Not on file Address: [address] [place] [id number] AETNA POS AETNA POS Advance Directives For more information, please contact: [phone] * Full Code (Latest Code Status on File) Date Activated Date Inactivated Comments 12/04/2022 11:38 AM 12/06/2022 6:53 PM * Full Code Date Activated Date Inactivated Comments 09/25/2022 6:30 PM 09/29/2022 10:20 PM Care Teams Race Relations Adviser Relationship Specialty Start Date End Date Bernadette Montero APRN [facility]ly [facility] [address] [place] [id number] PCP - General Nurse Practitioner 12/20/17
== END 2025-02-19 23:59 | disposition home or self-care (01) ==
LOC: LAB.DROPOF 02-21 12:01
PROVIDERS: PCP Nurse Practitioner; Visit Provider Nurse Practitioner
DX: R51.9 Headache, unspecified (principal)
CPT/HCPCS: 80053; 84443; 85025; 85651

== ENCOUNTER 2025-04-15 12:09 | Outpatient (CLI) | payer OTHER, SELFPAY ==
[2025-04-15 18:17] LABS: Alanine Aminotransferase 11 U/L (12-78); Albumin Level 3.9 g/dl (3.5-5.0); Albumin/Globulin Ratio 1.8 (1.1-1.8); Alkaline Phosphatase 80 U/L (38-126); Anion Gap 12.6 mEq/L (5-15); Aspartate Amino Transferase 17 U/L (14-36); Bilirubin,Total 0.4 mg/dl (0.2-1.3); Blood Urea Nitrogen 7 mg/dl (7-17); Calcium 9.0 mg/dl (8.4-10.2); Carbon Dioxide 27 mmol/L (22.0-30.0); Chloride 102 mmol/L (98-107); Creatinine,Serum 0.70 mg/dl (0.52-1.04); Estimated Glomerular Filt Rate 92 ml/min (>60); GFR (African American) 111 ML/MIN (>60); Globulin 2.2 g/dL (1.3-3.2); Glucose 51 mg/dl (74-100); Potassium 4.6 mmoL/L (3.5-5.1); Sodium 137 mmol/L (136-145); Total Protein,Serum 6.1 g/dl (6.3-8.2)
[2025-04-15 18:34] LABS: 25-OH Vitamin D, Total 27.4 ng/mL (30-100)
== END 2025-04-15 23:59 ==
LOC: LAB.DROPOF 04-17 12:10
PROVIDERS: PCP Nurse Practitioner; Visit Provider Nurse Practitioner
DX: E55.9 Vitamin D deficiency, unspecified (principal); E66.9 Obesity, unspecified
CPT/HCPCS: 80053; 82306